=== PATIENT | female | born 1945 | race Caucasian/White ===

== ENCOUNTER 2020-03-07 09:49 | Emergency (ER) | payer MEDICARE, OTHER, SELFPAY ==
--- NOTE | ~2020-03-07 | CT_ITS ---
EXAMINATION: CT brain wo con DATE: 03/07/2020 11:10 INDICATION: Headache. TECHNIQUE: Computed tomography (CT) of the head was performed without intravenous contrast. The mA wa s adjusted according to patient size. Iterative reconstruction technique was employed. The dose-lengt h product was 605.33 mGy-cm. COMPARISON: None FINDINGS: There are scattered areas of low attenuation in the cerebral white matter, which is within normal limits for the patient's age. There is no intracranial hemorrhage, acute infarction, or abnorm al intracranial mass lesion. The ventricles are normal in size. The orbits are normal. There is near complete opacification of left maxillary sinus and the anterior left ethmoid sinuses with thickening and sclerosis of the sinus person, consistent with chronic sinusitis. The mastoid air cells are normal . IMPRESSION: 1. Normal aging brain. 2. Chronic sinusitis. Reviewed, dictated and finalized at location A.
--- NOTE | ~2020-03-07 | XR_ITS ---
XR chest 1V portable 03/07/2020 10:35 Indication: Hypertension Procedure: AP portable chest Comparison: 05/24/2014 Findings: Cardiomegaly. Large hiatal hernia. Mild pulmonary vascular congestion. No focal pneumonia, pleural effusion or pneumothorax. No acute osseous abnormality. Impression: 1: Cardiomegaly with pulmonary vascular congestion. 2: Large hiatal hernia. Reviewed, dictated and finalized at location B. Impression: 1: Cardiomegaly with pulmonary vascular congestion. 2: Large hiatal hernia.
[2020-03-07 10:12] VITALS: BP 170/96; PULSE 83; RESP 18; TEMP 36.2; O2SAT 100
[2020-03-07] MEDS: hydrALAZINE HCL 20 MG/ML VIAL 10 MG IV PUSH (10:26)
[2020-03-07 10:38] LABS: Basophils Absolute Auto 0.1 K/mm3 (0.0-0.1); Basophils Percent Auto 0.9 % (0.2-1.2); Eosinophils Absolute Auto 0.2 K/mm3 (0-0.3); Eosinophils Percent Auto 3.1 % (0-4.4); Hematocrit 42.1 % (37.0-47.0); Hemoglobin 13.9 g/dL (12.0-15.0); Immature Granulocyte Absolute 0.02 K/mm3 (0.00-0.031); Immature Granulocyte Percent A 0.3 % (0-0.5); Lymphocytes Absolute Auto 1.84 K/mm3 (0.9-3.2); Mean Corpuscular Hemoglobin 30.5 pg (26-34); Mean Corpuscular Volume 92.5 fl (80-100); Mean Platelet Volume 10.3 fl (7.4-10.4); Monocytes Absolute Auto 0.8 K/mm3 (0.1-0.6); Monocytes Percent Auto 10.4 % (2.6-8.5); Neutrophils Absolute Auto 4.7 K/mm3 (1.3-6.7); Neutrophils Percent Auto 61.3 % (45.5-73.1); Platelet Count Result 276 k/mm3 (150-375); Red Blood Count 4.55 M/mm3 (4.2-5.4); Red Cell Distribution Width 12.9 % (11.5-14.5); White Blood Count 7.7 K/mm3 (4.5-10.0)
[2020-03-07 10:51] LABS: Anion Gap 8 mmol/L (8-16); Blood Urea Nitrogen 14 mg/dL (7-17); Carbon Dioxide 31 mmol/L (22-30); Chloride 102 mmol/L (98-107); Estimated CRCL calculation 52 ml/min; Estimated Glomerular Filt Rate > 60; Glucose 109 mg/dL (65-105); Potassium 3.2 mmol/L (3.4-5.0); Sodium 141 mmol/L (137-145)
--- NOTE | 2020-03-07 10:52 | ED.HA ---
HPI - Headache General Chief Complaint: Headache Stated Complaint: High blood pressure, PETERSON Time Seen by Provider: 03/07/20 10:11 Source: patient Mode of arrival: ambulatory Limitations: no limitations History of Present Illness HPI Narrative: Patient is a 74-year-old female who presents with 3 weeks duration of headache began to check her blood pressure in the last couple of days noticed that it was elevated with systolics of 200 patient notes she has had intermittent headache behind the right eye for the last 3 weeks which is what led her to checking her blood pressure. Patient was attempting to go to primary care and was redirected to the emergency department patient has history of hypertension has been compliant with her medications which she has been on long-term. . Patient is otherwise healthy and in no distress upon arrival patient notes mild to moderate pain involving her current headache has not taken anything. Patient otherwise in no distress denies other complaints Related Data Home Medications Medication Instructions Recorded Confirmed lisinopril-hydrochlorothiazide tablet 03/07/20 pantoprazole PO 03/07/20 Allergies Allergy/AdvReac Type Severity Reaction Status Date / Time latex Allergy Unknown Swelling Verified 03/07/20 10:11 Penicillins Allergy Unknown Swelling Verified 03/07/20 10:11 Review of Systems Review of Systems: All systems reviewed & are unremarkable except as noted in HPI and below PMFSH Past Medical History Medical History (Updated 03/07/20 @ 11:56 by Pradip Bonilla PA-C) GERD (gastroesophageal reflux disease) Hypertension Family History Family History (Updated 04/05/16 @ 11:48 by DOCTOR UNKNOWN) Mother Family history of congestive heart failure Cerebrovascular accident Sibling Patient's sister is in good health Social History Social History Smoking status: Never smoker Alcohol intake: never Gender identity (if verbalized by the patient): Female Exam Narrative: Exam Narrative: GENERAL: Well-appearing, well-nourished, and in no acute distress. HEAD: Normocephalic, atraumatic. EYES: PERRLA and EOMI. ENT: Nares clear, no rhinorrhea or epistaxis. Mucous membranes moist. NECK: Supple. No adenopathy or masses. No carotid bruits or JVD CHEST: Clear to auscultation. No respiratory distress. No wheezes rales or rhonchi HEART: Regular rate and rhythm. No murmur heard. Normal peripheral pulses. EXTREMITIES: Normal range of motion. No edema. SKIN: Warm, dry, no rash. NEURO: No focal deficits. Alert and oriented x3. Cranial nerves II through XII grossly intact PSYCH: Normal mood and affect. Course Course Emergency Course: Patient in the room in no distress had blood work checked was given antihypertensive hemodynamically stable at this time resting comfortably in no distress felt appropriate for outpatient reevaluation aware of discussion recommendations of primary care Consultations Consultation #1: Discussed case with primary care who will call in some blood pressure to some for the patient and will see patient on Tuesday at 11:00 in the office Date: 03/07/20 Time: 11:53 Vital Signs Vital signs: Vital Signs Temperature 97.1 F L 03/07/20 10:12 Pulse Rate 83 03/07/20 10:12 Respiratory Rate 18 03/07/20 10:12 Blood Pressure 170/96 H 03/07/20 10:12 Pulse Oximetry 100 03/07/20 10:12 Temperature 97.1 F L 03/07/20 10:12 Pulse Rate 76 03/07/20 11:29 Respiratory Rate 18 03/07/20 11:29 Blood Pressure 158/90 H 03/07/20 11:29 Pulse Oximetry 96 03/07/20 11:29 MDM - Headache MDM Narrative Medical decision making narrative: Patient in the room at this time resting comfortably aware of case findings treatment plan and diagnosis agreeing to follow with primary care on Tuesday hemodynamically stable in no distress aware of case findings treatment plan diagnosis no electrolyte abnormalitie
[2020-03-07 11:17] LABS: NT Pro B Type Natriuretic Pept 209 PG/ML (5-100)
[2020-03-07 11:29] VITALS: BP 158/90; PULSE 76; RESP 18; O2SAT 96
--- NOTE | 2020-03-07 11:54 | ECG_ITS ---
Measurements Intervals [place] Rate: 74 P: -2 [place]: 215 QRS: 11 QRSD: 82 T: 3 QT: 396 QTc: 440 Interpretive Statements SINUS RHYTHM WITH FIRST DEGREE AV BLOCK VOLTAGE CRITERIA FOR LVH BORDERLINE T WAVE ABNORMALITY- INFERIOR LEADS ABNORMAL ECG Electronically Signed On 03-07-2020 12:16:27 CDT by River Sanderson D.O.
== END 2020-03-07 12:25 | disposition home or self-care (01) ==
PROVIDERS: Emergency Medicine Emergency Medical Services; Emergency Provider Emergency Medicine; PCP Family Medicine
DX: R51.9 Headache, unspecified (principal); I10 Essential (primary) hypertension; K21.9 Gastro-esophageal reflux disease without esophagitis; I51.7 Cardiomegaly; R09.89 Other specified symptoms and signs involving the circulatory and respiratory systems; K44.9 Diaphragmatic hernia without obstruction or gangrene; J32.9 Chronic sinusitis, unspecified; I44.0 Atrioventricular block, first degree; R94.31 Abnormal electrocardiogram [ECG] [EKG]
CPT/HCPCS: 36415; 70450; 71045; 80048; 83880; 85025; 93005; 96374; 99284; J0360

== ENCOUNTER 2020-07-10 08:50 | Outpatient (CLI) | payer MEDICARE, OTHER, SELFPAY ==
--- NOTE | ~2020-07-10 | MM_ITS ---
EXAMINATION: MM screening bri BI w pepper HISTORY: Screening mammogram TECHNIQUE: Craniocaudal and mediolateral oblique 3-D tomosynthesis images were obtained and synthetic 2-D images were generated. CAD analysis was submitted and interpreted. COMPARISON: 05/25/2019, 04/20/2018, 04/12/2017 bilateral digital screening mammogram examinations BREAST PARENCHYMAL COMPOSITION: There are scattered areas of fibroglandular density. FINDINGS: Status post right partial mastectomy for breast cancer and history of left reduction mammop lasty. Scattered benign calcifications are noted bilaterally. No interval suspicious mass or new architectur al distortion or retraction or interval skin thickening. No malignant calcification. There has been n o suspicious interval change. IMPRESSION: 1. Status post right partial mastectomy for breast cancer and left reduction mammoplasty. No mammogra phic evidence of malignancy. 2. Recommend routine screening mammography in one year. BI-RADS Category 2: Benign finding(s). Reviewed, dictated and finalized at location A. C ILLUSTRATOR IMPRESSION: 1. Status post right partial mastectomy for breast cancer and left reduction ma mmoplasty. No mammographic evidence of malignancy. 2. Recommend routine screening mammography in one year. BI-RADS Category 2: Benign finding(s).
== END 2020-07-10 08:51 | disposition home or self-care (01) ==
LOC: ANHIMG 08:56
PROVIDERS: PCP Family Medicine; Visit Provider Family Medicine
DX: Z12.31 Encounter for screening mammogram for malignant neoplasm of breast (principal)
CPT/HCPCS: 77063; 77067

== ENCOUNTER 2021-06-29 20:44 | Inpatient (IN) | payer MEDICARE, OTHER, SELFPAY ==
--- NOTE | ~2021-06-29 | XR_ITS ---
EXAMINATION: XR chest 1V portable DATE: 06/29/2021 21:20 INDICATION: Syncope TECHNIQUE: frontal view of the chest was obtained. COMPARISON: Chest radiograph dated 03/07/2020 FINDINGS: No focal airspace opacities, pulmonary edema, pleural effusion or pneumothorax. Heart size is normal with prominent left paracardial fat pad. Calcified AP window lymph node consistent with old granuloma tous disease. Large hiatal hernia. IMPRESSION: 1. No acute cardiopulmonary disease. 2. Large hiatal hernia. Reviewed, dictated and finalized at location A. LEDGE MANAGEMENT ADVISOR
[2021-06-29 20:47] VITALS: BP 175/112; PULSE 84; RESP 18; TEMP 35.9; O2SAT 97
--- NOTE | 2021-06-29 20:56 | ECG_ITS ---
Measurements Intervals [place] Rate: 81 P: 3 [place]: 221 QRS: -18 QRSD: 141 T: 100 QT: 414 QTc: 481 Interpretive Statements SINUS RHYTHM WITH FIRST DEGREE AV BLOCK LEFT BUNDLE BRANCH BLOCK ABNORMAL ECG Electronically Signed On 06-30-2021 6:20:27 TRANSITION MANAGER by River Sanderson D.O.
--- NOTE | 2021-06-29 21:11 | ED.GENADULT ---
HPI - General Adult General Chief complaint: Syncope Stated complaint: syncope Time Seen by Provider: 06/29/21 21:02 Source: RN notes reviewed History of Present Illness HPI narrative: Patient presents emergency department from home for syncopal episode. Patient states syncopal episode occurred approximately 30 minutes prior to arrival states that she was standing in the kitchen talking to her granddaughter when she had turned and states the next thing she knew she had awoken after passing out per family the patient was out for approximately 30 seconds patient states she had been on her feet for a while she denied having any chest pain or shortness of breath prior to the episode and states she feels fine at this time she denies any fevers or chills numbness or tingling in the extremities or any other symptoms states she has been under increased stress as her last week Related Data Home Medications Medication Instructions Recorded Confirmed lisinopril-hydrochlorothiazide tablet 03/07/20 pantoprazole PO 03/07/20 clonidine HCl 06/29/21 Allergies Allergy/AdvReac Type Severity Reaction Status Date / Time latex Allergy Unknown Swelling Verified 06/29/21 20:53 Penicillins Allergy Unknown Swelling Verified 06/29/21 20:53 Review of Systems Review of Systems: Gen.: Denies fevers or chills Eyes: Denies eye pain or visual change ENT: Denies congestion Respiratory: See HPI CV: Denies chest pain or palpitations GI: Denies abdominal pain nausea, emesis or diarrhea Musculoskeletal: Denies back pain or muscle pain Neuro: Denies numbness, tingling, weakness or focal weakness Skin: Denies rash Except as documented, all other systems reviewed and negative [facility] Past Medical History Medical History GERD (gastroesophageal reflux disease) Hypertension Family History Family History (Updated 04/05/16 @ 11:48 by DOCTOR UNKNOWN) Mother Family history of congestive heart failure Cerebrovascular accident Sibling Patient's sister is in good health Social History Social History Smoking status: Never smoker Alcohol intake: never Gender identity (if verbalized by the patient): Female Exam Narrative: APPEARANCE: No acute distress, nontoxic, resting in bed EYES: EOMI HEENT: Normocephalic, atraumatic, OMM RESPIRATORY: No respiratory distress Clear to auscultation bilaterally with no rhonchi wheezing or rales. CARDIOVASCULAR: Regular rate and rhythm without murmurs rubs or gallops. ABDOMINAL: Soft, nontender, nondistended, no rebound or guarding MUSCULOSKELETAl: Moves all extremities. No clubbing, cyanosis or edema. NEURO: Awake and alert. Following commands, speech normal, no focal deficits SKIN:: Warm, dry. No rashes lesions or abrasions PSYCHIATRIC: Normal affect/mood, Course Course Emergency Course: Reviewed old records left bundle branch block new from last EKG Discussed with Dr. Cagle presentation work-up agrees with consult agrees with plan for aspirin 325 at this time but no further anticoagulation Discussed Dr. Weber presentation work-up agrees with admission Discussed with patient and family results of workup and diagnosis. Discussed need for admission. Patient and family understand and agree to current treatment plan Vital Signs Vital signs: Vital Signs Temperature 96.7 F L 06/29/21 20:47 Pulse Rate 84 06/29/21 20:47 Respiratory Rate 18 06/29/21 20:47 Blood Pressure 175/112 H 06/29/21 20:47 Pulse Oximetry 97 06/29/21 20:47 Temperature 96.7 F L 06/29/21 20:47 Pulse Rate 74 06/29/21 21:54 Respiratory Rate 18 06/29/21 20:47 Blood Pressure 175/112 H 06/29/21 20:47 Pulse Oximetry 97 06/29/21 20:47 Medical Decision Making Vital Signs Vital Signs: Vital Signs Temperature 96.7 F L 06/29/21 20:47 Pulse Rate 84 06/29/21 20:47 Respirator
[2021-06-29 21:33] LABS: Basophils Absolute Auto 0.1 K/mm3 (0.0-0.1); Basophils Percent Auto 0.7 % (0.2-1.2); Eosinophils Absolute Auto 0.2 K/mm3 (0-0.3); Eosinophils Percent Auto 2.1 % (0-4.4); Hematocrit 42.5 % (37.0-47.0); Hemoglobin 14.7 g/dL (12.0-15.0); Immature Granulocyte Absolute 0.03 K/mm3 (0.00-0.031); Immature Granulocyte Percent A 0.3 % (0-0.5); Lymphocytes Percent Auto 14.1 % (18.3-44.2); Mean Corpuscular HGB Conc 34.6 g/dl (32-36); Mean Corpuscular Volume 92.4 fl (80-100); Mean Platelet Volume 9.1 fl (7.4-10.4); Monocytes Absolute Auto 1.2 K/mm3 (0.1-0.6); Monocytes Percent Auto 10.5 % (2.6-8.5); Neutrophils Absolute Auto 8.2 K/mm3 (1.3-6.7); Neutrophils Percent Auto 72.3 % (45.5-73.1); Platelet Count Result 295 k/mm3 (150-375); Red Cell Distribution Width 13.7 % (11.5-14.5); White Blood Count 11.4 K/mm3 (4.5-10.0)
[2021-06-29 21:41] LABS: INR 1.1; Prothrombin Time 13.4 Seconds (11.1-14.7)
[2021-06-29 21:42] LABS: Partial Thromboplastin Time 29.7 SECONDS (22.3-36.8)
[2021-06-29 21:54] VITALS: PULSE 74
[2021-06-29 22:01] LABS: Alanine Aminotransferase 24 U/L (4-35); Albumin Level 4.1 g/dL (3.5-5.1); Alkaline Phosphatase 68 U/L (38-126); Anion Gap 7 mmol/L (8-16); Aspartate Amino Transferase 38 U/L (14-36); Bilirubin,Total 0.8 mg/dL (0.2-1.3); Blood Urea Nitrogen 13 mg/dL (7-17); Calcium 9.4 mg/dL (8.4-10.2); Carbon Dioxide 33 mmol/L (22-30); Chloride 95 mmol/L (98-107); Estimated CRCL calculation 50 ml/min; Estimated Glomerular Filt Rate > 60; Glucose 122 mg/dL (65-110); Potassium 2.7 mmol/L (3.4-5.0); Sodium 135 mmol/L (137-145)
--- NOTE | 2021-06-29 22:09 | PC.NURSE ---
Called lab to add on MG
[2021-06-29] MEDS: POTASSIUM CHLORIDE 20 MEQ TABLET 40 MEQ PO (22:23)
[2021-06-29 22:24] LABS: Troponin I 0.063 ng/mL (0.000-0.034)
[2021-06-29 22:28] LABS: Magnesium 1.5 mg/dL (1.6-2.3)
[2021-06-29] MEDS: ASPIRIN 81 MG CHEWABLE TABLET 324 MG PO (23:10)
[2021-06-29] MEDS: MAGNESIUM SULF 2 GM/WATER 50ML 2 GM/50 ML BAG IVPB (23:15)
[2021-06-29 23:41] LABS: SARS-CoV-2 RNA PCR Positive
[2021-06-30] VITALS (13 sets, daily range): BP systolic 115–156; BP diastolic 64–85; PULSE 68–102; RESP 18–20; TEMP 36.5–36.9; O2SAT 94–99; BMI 27.6
--- NOTE | 2021-06-30 01:27 | ADMGEN ---
This patient, Davina Trivedi, was admitted to IMU Room 202-01. Patient/family oriented to hospital policies and general routines including ID bracelet, bed and alarms, visiting hours, pain management, procedures, bathroom and other care routines, personal items, smoking policy, room service/diet, and visiting hours. Information on how to activate the Rapid Response Team has been discussed. Patient/Family are encouraged to report perceived risks to care and to ask questions if they do not understand what they are told or what they should do.
[2021-06-30] MEDS: SODIUM CHLORIDE 0.9% IV 1,000 ML 80 ML IV CONT ×2 (01:47→21:00)
[2021-06-30] MEDS: KCL 40 MEQ/WATER 100 ML 100 ML 25 ML IVPB (01:48)
[2021-06-30 02:43] LABS: Troponin I 0.081 ng/mL (0.000-0.034)
[2021-06-30 05:12] LABS: Basophils Absolute Auto 0.1 K/mm3 (0.0-0.1); Basophils Percent Auto 0.8 % (0.2-1.2); Eosinophils Absolute Auto 0.3 K/mm3 (0-0.3); Hematocrit 40.4 % (37.0-47.0); Hemoglobin 13.3 g/dL (12.0-15.0); Immature Granulocyte Absolute 0.03 K/mm3 (0.00-0.031); Immature Granulocyte Percent A 0.3 % (0-0.5); Lymphocytes Absolute Auto 1.79 K/mm3 (0.9-3.2); Lymphocytes Percent Auto 19.8 % (18.3-44.2); Mean Corpuscular HGB Conc 32.9 g/dl (32-36); Mean Corpuscular Hemoglobin 31.6 pg (26-34); Mean Platelet Volume 9.4 fl (7.4-10.4); Monocytes Absolute Auto 1.1 K/mm3 (0.1-0.6); Monocytes Percent Auto 12.4 % (2.6-8.5); Neutrophils Absolute Auto 5.8 K/mm3 (1.3-6.7); Neutrophils Percent Auto 63.7 % (45.5-73.1); Platelet Count Result 287 k/mm3 (150-375); Red Blood Count 4.21 M/mm3 (4.2-5.4); Red Cell Distribution Width 13.8 % (11.5-14.5)
[2021-06-30 05:27] LABS: Anion Gap 6 mmol/L (8-16); Blood Urea Nitrogen 12 mg/dL (7-17); Calcium 8.7 mg/dL (8.4-10.2); Carbon Dioxide 31 mmol/L (22-30); Chloride 99 mmol/L (98-107); Estimated CRCL calculation 49 ml/min; Estimated Glomerular Filt Rate > 60; Glucose 103 mg/dL (65-110); Potassium 3.7 mmol/L (3.4-5.0); Sodium 136 mmol/L (137-145)
[2021-06-30 05:42] LABS: Troponin I 0.091 ng/mL (0.000-0.034)
--- NOTE | 2021-06-30 06:00 | ECHO_ITS ---
Patient Info Name: Davina Trivedi Age: 76 years : 1945 Gender: Female Ht: 60 in Wt: 150 lbs BSA: 1.72 m2 HR: 78 bpm BP: 147 / 79 mmHg Heart Rhythm: Sinus Rhythm Technical Quality: Fair Exam Date: 06/30/2021 8:25 AM Exam Location: [facility] Patient Status: Outpatient Admit Date: 06/29/2021 Staff Ordering Physician: Maxi Cruz DO Printing Equipment Mechanic Apprentice: Stacy Ledesma RDCS Attending Provider: India Weber DO Referring Physician: Nancy SALVADOR; Exam Type: CA echo doppler color flow Study Info Indications - L FUNCTION Complete two-dimensional, color flow and Doppler transthoracic echocardiogram is performed. Summary 1. Complete two-dimensional, color flow and Doppler transthoracic echocardiogram is performed. 2. Normal LV size, mild LVH, normal LV systolic function, ejection fraction 65-70%, diastolic dysfunction is present. Mild left atrial enlargement. Mitral valve leaflets are thickened, mild MR. Mild aortic valve sclerosis, mild aortic stenosis, valve area of 2 cm2, mild aortic regurgitation. Mild TR. RVSP 30 mmHg. Sinus rhythm with bundle branch block. Left Ventricle Left ventricular chamber dimension is normal. Left ventricular systolic function is normal, estimated at 65-70%. There is mildly increased left ventricular wall thickness. The left ventricular diastolic function is abnormal. E/e' 18.7 is elevated. Right Ventricle Right ventricular chamber dimension is normal. Right ventricular systolic function is normal. Left Atria Left atrial chamber dimension is mildly enlarged. Right Atria Right atrial chamber dimension is normal. Aortic Valve There is mild aortic valve sclerosis. There is mild aortic valve stenosis with a peak velocity of 143 cm/s, mean gradient of 4 mmHg, and aortic valve area of 1.9 cm2. There is trace aortic valve regurgitation. Pulmonic Valve The pulmonic valve is not well visualized. There is trace pulmonic regurgitation. Mitral Valve The mitral valve has thickened leaflets. There is mild mitral valve regurgitation. Tricuspid Valve The tricuspid valve leaflets are normal. There is mild tricuspid valve regurgitation. Pericardium/Pleural The pericardium appears normal. Inferior Vena Cava Normal inferior vena cava with >50% collapse upon inspiration consistent with normal right atrial pressure, 10 mmHg. Aorta There is mild aortic atherosclerosis. Left Ventricular Outflow Tract Name Value Normal LVOT 2D LVOT Diameter 2.0 cm LVOT Doppler LVOT Peak Gradient 3 mmHg LVOT Mean Gradient 2 mmHg LVOT VTI 17 cm LVOT VTI/AV VTI Ratio 0.6 LVOT Stroke Volume 54 ml LVOT CO 3.5 l/min LVOT CI 2.0 l/min/m2 Pulmonic Valve Name Value Normal
--- NOTE | 2021-06-30 08:43 | PM.CNCAR ---
Assessment and Plan Assessment and plan (1) Syncope: Code(s): R55 - Syncope and collapse Status: Acute Assessment and Plan: 76-year-old female with hypertension, GERD; history of CA breast status post mastectomy, no known prior cardiac history. Patient admitted to the hospital after a brief episode of loss of consciousness. No preceding symptoms of chest pain, shortness of breath. Patient undergoing motion stress due to recent passing of her . EKG showed sinus rhythm first-degree AV block, left bundle branch block (LBBB new compared to 03/07/2020 EKG). Troponins are minimally elevated. Patient does not have any ongoing cardiovascular symptoms. The etiology of syncope uncertain at this time. Possible etiologies include severe emotional stress, medication adverse effect, cardiac arrhythmia with underlying COVID-19 infection and severe hypokalemia; less likely acute coronary event. No significant arrhythmias on telemetry. -echocardiogram with Doppler to assess LV function, wall motion and rule out any major structural heart disease. -will determine need for further cardiac testing including ischemic evaluation based on echo results and clinical course. Patient has already eaten today. Will keep her NPO past midnight just in case she needs any ischemic evaluation. -aspirin, low-dose beta-gissell. -supplement electrolytes as needed -continue to monitor on telemetry (2) Elevated troponin: Code(s): R77.8 - Other specified abnormalities of plasma proteins Status: Acute Assessment and Plan: Plan described above. (3) Hypertension: Code(s): I10 - Essential (primary) hypertension Status: Acute Assessment and Plan: Patient was severely hypertensive on presentation. Her home medications include lisinopril/hydrochlorothiazide and clonidine. Clonidine should not be a first-line treatment for hypertension. -will initiate on losartan 50 mg p.o. daily and carvedilol 3.125 mg p.o. b.i.d.. Antihypertensive management as an outpatient. (4) COVID-19: Code(s): U07.1 - COVID-19 Status: Acute Assessment and Plan: Patient positive for COVID-19. She has not been requiring any supplemental oxygen and appears to be clinically stable at present. Management as per primary team. Patient reports that she was not vaccinated. History of Present Illness History of Present Illness Consult date/time: 06/30/21 08:43 DATE OF CONSULT: 08/28/2021 REASON FOR CONSULT: Syncope REQUESTING PHYSICIAN:Maxi Cruz DO CHIEF COMPLAINT: Loss of consciousness HPI: 76-year-old female with hypertension, GERD; history of CA breast status post mastectomy, no known prior cardiac history. Patient brought to [facility] on 06/29/2021 after an episode of loss of consciousness. Patient was apparently standing in the kitchen when she she passed out. Per witness, she passed out for about 30 seconds, and was helped by her family member and did not sustain any injuries. Patient denied any preceding symptoms of chest pain, shortness of breath, palpitations. Patient states that she has been undergoing emotional stress due to passing of her recently from COVID-19 infection. His is scheduled today. Patient's vitals at presentation showed elevated blood pressure at 175/112, pulse 84, afebrile, saturating 97%. Patient was found to be COVID positive and is currently in isolation. Patient states that she was not vaccinated for COVID-19 infection. EKG on my personal evaluation showed sinus rhythm, first-degree AV block, left bundle branch block. Left bundle branch block is new compared to the EKG from 03/07/2020. Troponins minimally elevated with current peak troponin level of 0.091. BNP 209. Patient was hypokalemic with potassium 2.7 at presentation which has been supplemented. Chest x-ray showed no acute cardiopulmonary disease, large hiatal hernia. Reason For Visit: Syncope, Hypokalemia
[2021-06-30] MEDS: ACETAMINOPHEN 325 MG TABLET 650 MG PO (12:24)
--- NOTE | 2021-06-30 16:14 | PM.IMHP ---
H&P: HPI History of Present Illness Date/Time: 06/30/21 16:14 Chief Complaint: Syncope Narrative: 76-year-old female with hypertension, GERD; history of CA breast status post mastectomy, no known prior cardiac history. Patient brought to [facility] on 06/29/2021 after an episode of loss of consciousness. Pt had episode of syncope and her daughter caught her in time. Pt passed out in her kitchen. Unfortunately pt recently lost her last week and his is today. Pt has been under alot of stress. EKG on admission is abnl and pt BPs have been high. Pt seen by cardiology today and is scheduled for heart cath. has from covid, unfortunately pt is positive for covid, but does not have any symptoms of cough sob or fever. Review of Systems Review of Systems: All systems reviewed & are unremarkable except as noted in HPI and below PMFSH Past Medical History Medical History GERD (gastroesophageal reflux disease) Hypertension Family History Family History Mother Family history of congestive heart failure Cerebrovascular accident Sibling Patient's sister is in good health Social History Social History Smoking status: Never smoker Second hand tobacco smoke exposure: No Alcohol intake: never Substance use: never Substance use type: does not use Gender identity (if verbalized by the patient): Female Spiritual care concerns: Yes Meds Home Medications and Allergies Home Medications Medication Instructions Recorded Confirmed Type lisinopril-hydrochlorothiazide 20 tablet PO QAM MDD 20 03/07/20 06/30/21 History [Zestoretic] pantoprazole [Protonix] 40 mg PO QAM MDD 40mg 03/07/20 06/30/21 History clonidine HCl 0.1 mg PO DAILY MDD 1 06/29/21 06/30/21 History Allergies Allergy/AdvReac Type Severity Reaction Status Date / Time latex Allergy Unknown Swelling Verified 06/29/21 20:53 Penicillins Allergy Unknown Swelling Verified 06/29/21 20:53 Vital Signs Vital Signs - 24 hr 06/29/21 20:47 06/29/21 21:54 06/30/21 01:05 Temperature 35.9 C L 36.5 C Pulse Rate 84 74 102 H Respiratory Rate 18 20 Blood Pressure 175/112 H 140/85 Pulse Oximetry 97 97 06/30/21 02:19 06/30/21 04:00 06/30/21 08:00 Temperature 36.6 C 36.9 C Pulse Rate 97 78 85 Respiratory Rate 20 18 Blood Pressure 147/79 H 156/81 H Pulse Oximetry 99 99 06/30/21 10:00 06/30/21 12:00 06/30/21 14:00 Temperature 36.8 C Pulse Rate 87 85 87 Respiratory Rate 18 Blood Pressure 115/64 Pulse Oximetry 96 06/30/21 16:00 Temperature 36.9 C Pulse Rate 77 Respiratory Rate 18 Blood Pressure 145/69 H Pulse Oximetry 98 Exam Const: Nutritional Appearance: other (weak ) Orientation/consciousness: lethargic HENMT: Head: normocephalic Eyes: General: appearance normal, both eyes and all related structures Pupils: Equal, round and reactive pupils present Neck: Neck: supple Chest: Chest palpation & inspection: normal inspection of the chest Resp: Effort & Inspection: normal respiratory effort Auscultation: clear to auscultation bilaterally Cardio: Jugular venous distension: no JVD Rhythm: regular rhythm Heart sounds: S1 normal heart sound present and S2 normal heart sound present GI: Inspection: normal to inspection GI Palp: No abdominal tenderness, Yes Soft to palpation and No Tenderness to palpation present (GI) Auscultation: normal bowel sounds Skin: General skin exam: normal color and dry skin Neuro: Cranial nerves: Yes CN's II-XII intact bilaterally and Yes Equal, round and reactive pupils present Cognition (Neuro): normal cognition Speech: normal speech Motor exam (neuro): 5/5 motor strength present throughout Extrem: General: normal to inspection Psych: Appearance: grossly normal Mental S
--- NOTE | 2021-06-30 16:48 | PC.NURSE ---
On 06/30/21, the student, [ Gretchen Basurto], provided care and completed [facility] documentation on this patient. I have reviewed the student's documentation and agree with the findings.
[2021-06-30] MEDS: POTASSIUM CHLORIDE 20 MEQ TABLET.ER PO (17:31)
[2021-06-30] MEDS: carvediloL 3.125 MG TABLET PO (20:20)
[2021-07-01] VITALS (13 sets, daily range): BP systolic 120–184; BP diastolic 65–90; PULSE 69–104; RESP 16–20; TEMP 36.2–36.8; O2SAT 96–99
[2021-07-01 09:05] LABS: Anion Gap 10 mmol/L (8-16); Blood Urea Nitrogen 10 mg/dL (7-17); Calcium 8.7 mg/dL (8.4-10.2); Carbon Dioxide 25 mmol/L (22-30); Chloride 102 mmol/L (98-107); Estimated CRCL calculation 56 ml/min; Estimated Glomerular Filt Rate > 60; Glucose 96 mg/dL (65-110); Magnesium 1.9 mg/dL (1.6-2.3); Potassium 3.8 mmol/L (3.4-5.0); Sodium 137 mmol/L (137-145)
[2021-07-01] MEDS: SODIUM CHLORIDE 0.9% IV 1,000 ML 80 ML IV CONT (09:23)
[2021-07-01] MEDS: LOSARTAN POTASSIUM 50 MG TABLET PO (09:24)
[2021-07-01] MEDS: POTASSIUM CHLORIDE 20 MEQ TABLET.ER PO ×2 (09:24→16:36)
[2021-07-01] MEDS: PANTOPRAZOLE 40 MG TABLET PO (09:25)
[2021-07-01] MEDS: MAGNESIUM OXIDE 400 MG TABLET PO (09:25)
[2021-07-01] MEDS: ASPIRIN 81 MG ENTERIC TABLET PO (09:25)
[2021-07-01] MEDS: carvediloL 3.125 MG TABLET PO ×2 (09:25→20:22)
--- NOTE | 2021-07-01 11:15 | P.CDI_ITS ---
CDI Query Clarification Request -Covid 19 has been documented and does not have any symptoms of cough, SOB, or fever documented and no current treatment for COVID. -06/29 Covid PCR positive -EDP documented, I discussed with the patient a positive Covid test patient states she had Covid 6 weeks ago and had spent 1 day in the hospital at that time Please clarify status of COVID 19: * Acute/active infection * Sequelae/residual affect of * History of Covid * Other * Unable to determine
--- NOTE | 2021-07-01 13:25 | PM.PNCARD ---
Progress Note: A&P Assessment and Plan (1) Syncope: Code(s): R55 - Syncope and collapse Status: Acute Assessment and Plan: 76-year-old female with hypertension, GERD; history of CA breast status post mastectomy, no known prior cardiac history. Patient admitted to the hospital after a brief episode of loss of consciousness. No preceding symptoms of chest pain, shortness of breath. Patient undergoing motion stress due to recent passing of her . EKG showed sinus rhythm first-degree AV block, left bundle branch block (LBBB new compared to 03/07/2020 EKG). Troponins are minimally elevated. Patient does not have any ongoing cardiovascular symptoms. The etiology of syncope uncertain at this time. Possible etiologies include severe emotional stress, medication adverse effect, cardiac arrhythmia with underlying COVID-19 infection and severe hypokalemia; less likely acute coronary event. No significant arrhythmias on telemetry. -echocardiogram normal LV systolic function EF 60-65%, paradoxical septal motion secondary to LBBB but no focal regional wall motion abnormality. Discussed at great length with the patient and her daughter at bedside initial concern prior to review of her echo for possible takotsubo or stress-induced cardiomyopathy given elevated troponin, syncope and LBBB on EKG in setting of very recent of her . However, there is no evidence for stress-induced cardiomyopathy with preserved EF no heart failure or anginal symptoms of any kind. While if remains unknown if she has any underlying CAD there is no evidence of acute coronary syndrome and/or plaque rupture at this time. Given the mild troponin elevation this would not result in or cause loss of consciousness unless associated with a ventricular arrhythmia. And neck case I would expect that would be a much larger troponin elevation and or LV dysfunction to corroborate high risk ischemic arrhythmia. At this time there is no evidence to support this and therefore proceeding with invasive angiography given her otherwise completely asymptomatic status resulting greater risk versus benefit at this time. We discussed reasonable approach to pursue noninvasive ischemic evaluation as an outpatient. Continue telemetry overnight Spent approximately 44 minutes in the care of this patient at bedside with extensive discussion with the patient and her daughter, examination, chart review, and medical decision making. (2) Elevated troponin: Code(s): R77.8 - Other specified abnormalities of plasma proteins Status: Acute Assessment and Plan: As above, precise etiology remains unclear but not secondary to angina or evidence of acute coronary syndrome and/or plaque rupture. Chronicity of LBBB remains unknown but new since February 2020. Mildly cannot exclude underlying CAD she has no symptoms suggestive of angina or CHF. Explained had if she had significant bradycardia, pauses and or marked tachyarrhythmia this may result and elevated troponin. Clinical picture is not consistent with pulmonary embolism. Findings on her echocardiogram are quite favorable. Explained I would like to repeat troponin to determine trend. Repeat troponin this afternoon was negative which is quite encouraging. Explained I would prefer to treat her on a more aggressive past as if she may have underlying CAD with aspirin 81 mg daily. Will check a lipid panel. If significant dyslipidemia is noted addition of statin would be advised. If no new issues overnight disposition tomorrow morning per hospitalist service. (3) PSVT (paroxysmal supraventricular tachycardia): Code(s): I47.1 - Supraventricular tachycardia Status: Acute Assessment and Plan: Transient, brief and asymptomatic episodes. Continue carvedilol which may reduce recurrence. Discussed outpatient patient monitor given syncope and tachyarrhythmia. (4) Hypertension: Code(s): I10 - Essential (lauren
--- NOTE | 2021-07-01 14:22 | PM.IMPN ---
Progress Note: A&P Assessment and Plan (1) COVID-19: Code(s): U07.1 - COVID-19 Status: Acute Assessment and Plan: Pt is asymptomatic presently, pt is not needing oxygen. Off isolation. (2) Hypertension: Code(s): I10 - Essential (primary) hypertension Status: Acute Assessment and Plan: Pt seen by cardiology started on BP medications (3) Syncope: Code(s): R55 - Syncope and collapse Status: Acute Assessment and Plan: ? to cardiac event ? to electrolyte abnormality ? covid ? secondary to stress Pt will need complete ischemic evaluation due to elevate trop, high bps and abnl ekg Already seen by cardiology (4) Acute hypokalemia: Code(s): E87.6 - Hypokalemia Status: Resolved Assessment and Plan: Potassium levels are corrected (5) Hypomagnesemia: Code(s): E83.42 - Hypomagnesemia Status: Acute Assessment and Plan: Magnesium levels are nl now were corrected (6) Elevated troponin: Code(s): R77.8 - Other specified abnormalities of plasma proteins Status: Acute Assessment and Plan: Pt will need ischemic work up continue tele monitoring.Pt is npo for heart cath. pt already seen by cardiology (7) Bereavement: Code(s): Z63.4 - Disappearance and of family member Status: Acute Assessment and Plan: Pt is very anxious and worried recently lost her . Subjective Date/time seen: 07/01/21 14:22 Interval history: 76-year-old female with hypertension, GERD; history of CA breast status post mastectomy, no known prior cardiac history. Patient brought to [facility] on 06/29/2021 after an episode of loss of consciousness. Pt admitted with syncope. Pt found to be covid positive but does not have any symptoms. Unfortunately pt recently lost her last week and his is yesterday. Pt is very nervous. Pt seen by cardiology today and is scheduled for heart cath. I explained this to the patient but she is very nervous about the procedure. Review of Systems Review of Systems: All systems reviewed & are unremarkable except as noted in HPI and below Exam Const: General: cooperative and anxious Orientation/consciousness: oriented to person HENMT: Head: normal to inspection Resp: Effort & Inspection: no respiratory distress Auscultation: no rhonchi and no wheezes Cardio: Rate: regular rate Rhythm: regular rhythm GI: Inspection: normal to inspection GI Palp: No abdominal tenderness, No Guarding due to palpation present (GI) and No Hepatomegaly present Auscultation: normal bowel sounds Neuro: General: oriented to person Objective Data Vital Signs Vital Signs: Vital Signs - 24 hr 06/30/21 16:00 06/30/21 18:00 06/30/21 20:00 Temperature 36.9 C 36.7 C Pulse Rate 77 80 75 Respiratory Rate 18 20 Blood Pressure 145/69 H 152/79 H Pulse Oximetry 98 94 06/30/21 20:20 06/30/21 20:24 06/30/21 22:00 Temperature Pulse Rate 86 84 Respiratory Rate Blood Pressure Pulse Oximetry 94 07/01/21 00:00 07/01/21 02:00 07/01/21 04:00 Temperature 36.6 C 36.2 C L Pulse Rate 92 74 73 Respiratory Rate 16 16 Blood Pressure 150/65 H 184/90 H Pulse Oximetry 97 97 07/01/21 06:00 07/01/21 08:00 07/01/21 09:25 Temperature 36.8 C Pulse Rate 84 75 79 Respiratory Rate 18 Blood Pressure 154/86 H Pulse Oximetry 96 07/01/21 10:00 07/01/21 12:00 07/01/21 14:00 Temperature 36.7 C Pulse Rate 70 69 71 Respiratory Rate 20 Blood Pressure 120/74 Pulse Oximetry 98 Intake/Output Intake/Output: Intake & Output 06/28/21 06/29/21 06/30/21 07/01/21 23:59 23:59 23:59 23:59 Intake Total 2550 1974 Output Total 600 Balance 1950 1974 Meds/Results Medications: Active Medications Generic Name Dose Route Start Last Admin Trade Name Freq PRN Reason Stop Dose Admin Acetaminophen 650 mg 06/30/21 11:54 06/30/21 12:24
[2021-07-01 16:39] LABS: Troponin I 0.013 ng/mL (0.000-0.034)
[2021-07-02] VITALS (7 sets, daily range): BP systolic 150–160; BP diastolic 83–96; PULSE 59–81; RESP 16–20; TEMP 36.2–36.6; O2SAT 97–98
[2021-07-02 05:58] LABS: LDL Cholesterol Direct 81 mg/dL
[2021-07-02 06:00] LABS: Anion Gap 4 mmol/L (8-16); Blood Urea Nitrogen 10 mg/dL (7-17); Calcium 8.4 mg/dL (8.4-10.2); Carbon Dioxide 26 mmol/L (22-30); Chloride 107 mmol/L (98-107); Cholesterol 138 mg/dL (0-200); Estimated CRCL calculation 56 ml/min; Estimated Glomerular Filt Rate > 60; Glucose 92 mg/dL (65-110); HDL Direct 30 mg/dL; Potassium 4.2 mmol/L (3.4-5.0); Sodium 137 mmol/L (137-145); Triglycerides 74 mg/dL (<150)
--- NOTE | 2021-07-02 08:58 | PM.PNCARD ---
Progress Note: A&P Assessment and Plan (1) Syncope: Code(s): R55 - Syncope and collapse <LATONIA Bolanos - Last Filed: 07/02/21 17:05> Status: Acute <LATONIA Bolanos - Last Filed: 07/02/21 17:05> Assessment and Plan: 76-year-old female with hypertension, GERD; history of CA breast status post mastectomy, no known prior cardiac history. Patient admitted to the hospital after a brief episode of loss of consciousness. No preceding symptoms of chest pain, shortness of breath. Patient undergoing stress due to recent passing of her . EKG showed sinus rhythm first-degree AV block, left bundle branch block (LBBB new compared to 03/07/2020 EKG). Troponins are minimally elevated. Patient does not have any ongoing cardiovascular symptoms. The etiology of syncope uncertain at this time. Possible etiologies include severe emotional stress, medication adverse effect, cardiac arrhythmia with underlying COVID-19 infection and severe hypokalemia; less likely acute coronary event. No significant arrhythmias on telemetry. -echocardiogram normal LV systolic function EF 60-65%, paradoxical septal motion secondary to LBBB but no focal regional wall motion abnormality. Discussed at great length with the patient and her daughter at bedside initial concern prior to review of her echo for possible takotsubo or stress-induced cardiomyopathy given elevated troponin, syncope and LBBB on EKG in setting of very recent of her . However, there is no evidence for stress-induced cardiomyopathy with preserved EF no heart failure or anginal symptoms of any kind. While if remains unknown if she has any underlying CAD there is no evidence of acute coronary syndrome and/or plaque rupture at this time. Given the mild troponin elevation this would not result in or cause loss of consciousness unless associated with a ventricular arrhythmia. -Discussed plan for outpatient lexiscan stress test. She expresses that she would like to wait a couple of weeks before having this test. Will arrange for lexiscan and follow up appointment in our office. <LATONIA Bolanos - Last Filed: 07/02/21 17:05> (2) Elevated troponin: Code(s): R77.8 - Other specified abnormalities of plasma proteins <LATONIA Bolanos - Last Filed: 07/02/21 17:05> Status: Acute <LATONIA Bolanos - Last Filed: 07/02/21 17:05> Assessment and Plan: As above, precise etiology remains unclear but not secondary to angina or evidence of acute coronary syndrome and/or plaque rupture. Continue ASA 81mg daily Lipid panel favorable, does not need statin at this time Plan for OP stress test to evaluate for any underlying CAD <LATONIA Bloanos - Last Filed: 07/02/21 17:05> (3) PSVT (paroxysmal supraventricular tachycardia): Code(s): I47.1 - Supraventricular tachycardia <LATONIA Bolanos - Last Filed: 07/02/21 17:05> Status: Acute <LATONIA Bolanos - Last Filed: 07/02/21 17:05> Assessment and Plan: Transient, brief and asymptomatic episodes. Continue carvedilol which may reduce recurrence. Will order outpatient tele monitor <LATONIA Bolanos - Last Filed: 07/02/21 17:05> (4) Hypertension: Code(s): I10 - Essential (primary) hypertension <LATONIA Bolanos - Last Filed: 07/02/21 17:05> Status: Acute <LATONIA Bolanos - Last Filed: 07/02/21 17:05> Assessment and Plan: Patient was hypertensive on presentation which has improved Her home medications include lisinopril/hydrochlorothiazide and clonidine. Continue losartan 50mg p.o daily Continue core 3.125mh p.o. b.i.d Antihypertensive management as outpatient <LATONIA Bolanos - Last Filed: 07/02/21 17:05> (5) Left bundle branch block: Code(s): I44.7 - Left bundle-branch block, unspecified <LATONIA Bolanos - Last Filed: 07/02/21 17:05
[2021-07-02] MEDS: ASPIRIN 81 MG ENTERIC TABLET PO (09:05)
[2021-07-02] MEDS: MAGNESIUM OXIDE 400 MG TABLET PO (09:05)
[2021-07-02] MEDS: POTASSIUM CHLORIDE 20 MEQ TABLET.ER PO (09:05)
[2021-07-02] MEDS: carvediloL 3.125 MG TABLET PO (09:05)
[2021-07-02] MEDS: PANTOPRAZOLE 40 MG TABLET PO (09:05)
[2021-07-02] MEDS: LOSARTAN POTASSIUM 50 MG TABLET PO (09:05)
--- NOTE | 2021-07-02 11:04 | PM.DS ---
DS: Admitting Diagnosis Discharge Date 07/02/21 Admitting Diagnosis Syncope DS: Discharge Diagnosis Discharge Diagnosis (1) Syncope: Code(s): R55 - Syncope and collapse Status: Acute (2) PSVT (paroxysmal supraventricular tachycardia): Code(s): I47.1 - Supraventricular tachycardia Status: Acute (3) Elevated troponin: Code(s): R77.8 - Other specified abnormalities of plasma proteins Status: Acute (4) Left bundle branch block: Code(s): I44.7 - Left bundle-branch block, unspecified Status: Acute (5) Hypertension: Code(s): I10 - Essential (primary) hypertension Status: Acute (6) Acute hypokalemia: Code(s): E87.6 - Hypokalemia Status: Resolved (7) Hypomagnesemia: Code(s): E83.42 - Hypomagnesemia Status: Acute (8) COVID-19: Code(s): U07.1 - COVID-19 Status: Acute (9) Bereavement: Code(s): Z63.4 - Disappearance and of family member Status: Acute DS: Summary Hospital Course Reason for hospitalization: 76yo female recently diagnosed with COVID early May and also who is grieving over the loss of her here for syncopal episode. Please see H&P for details Hospital Course: Patient brought to [facility] on 06/29/2021 after an episode of loss of consciousness. Blood pressure on admission was 175/112. White count was slightly elevated but normalized on repeat. Potassium and magnesium were low in these were replaced. Troponin climbed to 0.09 before normalizing. COVID nasal swab was positive. Patient did have COVID last month. Chest x-ray was clear. She remained on room air. EKG showed normal sinus rhythm with first-degree AV block and left bundle branch block. Echocardiogram showed normal LV systolic function with EF of 65-70%, mild LVH and diastolic dysfunction. She had mild valvular disease noted. Patient was seen by Cardiology. She remained on telemetry. She did have a episode of paroxysmal supraventricular tachycardia noted. She was started on Coreg for this. Medications were adjusted. Plan is for outpatient stress test. Patient will be discharged home with cardiac monitoring. Syncopal episode felt to be neurocardiogenic related to the recent loss of her . Patient has been up ambulating to the bathroom. She denies any chest pain, shortness of breath, dizziness or lightheadedness. She overall did well as a to be discharged home on 07/02/2019 tube. Discussed with Cardiology. Status at Discharge Cognitive/behavioral status at discharge: Stable Time Spent with Patient Time attestation: Total time spent providing and/or coordinating discharge services: 38 minutes Time spent: Greater than 30 minutes Exam Narrative: AF 97.1 160/88 71 16 97% ra Gen - NARD Chest - CTA bilaterally, nml RR CV - RRR S1/S2. Tele showing 2 episodes of Mobitz I Abd - Soft, NT/ND, Positive BS Ext - No pedal edema Neuro - Alert and oriented. Nonfocal exam. Psych - Nml mood and affect Skin - Warm and dry DS: Data Data Completed and Pending Labs on day of discharge: Labs from last 24 hours 07/02/21 07/01/21 04:31 16:04 Sodium 137 Potassium 4.2 Chloride 107 Carbon Dioxide 26 Anion Gap 4 L BUN 10 Creatinine 0.60 L Estim Creat Clear Calc 56 Estimated GFR > 60 Glucose 92 Calcium 8.4 Troponin I 0.013 Triglycerides 74 Cholesterol 138 LDL Cholesterol Direct 81 HDL Direct 30 Discharge Plan Discharge Attending physician on discharge: Ron Hernandez Consulting providers: Ollie Cagle Discharging Clinician: Ron Hernandez Anticipated Discharge Date/Time: 07/02/21 11:31 Patient Disposition: Home, Self-Care Activity: no straining and as tolerated Diet: heart healthy Discharge Instructions: Please avoid large gathering, wear face coverings in public and practice social distance. Take precautions to av
[2021-07-02] MEDS: ACETAMINOPHEN 325 MG TABLET 650 MG PO (12:21)
== END 2021-07-02 12:47 | disposition home or self-care (01) | DRG 312 ==
LOC: ANHED 22:47 → ANHIMU 23:07
PROVIDERS: Emergency Medicine; Family Medicine; Internal Medicine Cardiovascular Disease; Admitting Provider Internal Medicine; Emergency Provider Emergency Medicine; PCP Family Medicine; Visit Provider Internal Medicine
DX: R55 Syncope and collapse (principal); I47.1 Supraventricular tachycardia; K21.9 Gastro-esophageal reflux disease without esophagitis; I10 Essential (primary) hypertension; Z82.3 Family history of stroke; Z82.49 Family history of ischemic heart disease and other diseases of the circulatory system; R77.8 Other specified abnormalities of plasma proteins; E87.6 Hypokalemia; Z85.3 Personal history of malignant neoplasm of breast; Z63.4 Disappearance and death of family member; E83.42 Hypomagnesemia; I44.7 Left bundle-branch block, unspecified; Z88.8 Allergy status to other drugs, medicaments and biological substances; Z91.040 Latex allergy status; Z86.16 Personal history of COVID-19; Z20.822 Contact with and (suspected) exposure to COVID-19; Z79.899 Other long term (current) drug therapy
CPT/HCPCS: 36415; 71045; 80048; 80053; 80061; 83735; 84484; 85025; 85610; 85730; 93005; 93306; 96361; 96365; 96375; 99285; A9270; C9803; G0378; J3475; J3480; J7030; U0003; U0005

== ENCOUNTER 2021-09-24 00:40 | Day surgery (SDC) | payer MEDICARE, OTHER, SELFPAY ==
[2021-09-23 12:04] VITALS: BMI 28.4
[2021-09-24] VITALS (17 sets, daily range): BP systolic 102–194; BP diastolic 52–105; PULSE 52–76; RESP 12–24; TEMP 36.1–36.2; O2SAT 94–97; BMI 28.0
[2021-09-24 07:50] LABS: Basophils Absolute Auto 0.1 K/mm3 (0.0-0.1); Basophils Percent Auto 1.1 % (0.2-1.2); Eosinophils Absolute Auto 0.4 K/mm3 (0-0.3); Eosinophils Percent Auto 4.3 % (0-4.4); Hematocrit 43.2 % (37.0-47.0); Immature Granulocyte Absolute 0.02 K/mm3 (0.00-0.031); Immature Granulocyte Percent A 0.2 % (0-0.5); Lymphocytes Absolute Auto 1.61 K/mm3 (0.9-3.2); Lymphocytes Percent Auto 18.8 % (18.3-44.2); Mean Corpuscular HGB Conc 32.4 g/dl (32-36); Mean Corpuscular Hemoglobin 30.9 pg (26-34); Mean Corpuscular Volume 95.4 fl (80-100); Mean Platelet Volume 9.5 fl (7.4-10.4); Monocytes Percent Auto 11.2 % (2.6-8.5); Neutrophils Absolute Auto 5.5 K/mm3 (1.3-6.7); Neutrophils Percent Auto 64.4 % (45.5-73.1); Platelet Count Result 296 k/mm3 (150-375); Red Blood Count 4.53 M/mm3 (4.2-5.4); Red Cell Distribution Width 13.1 % (11.5-14.5); White Blood Count 8.6 K/mm3 (4.5-10.0)
[2021-09-24 07:54] LABS: Anion Gap 9 mmol/L (8-16); Blood Urea Nitrogen 15 mg/dL (7-17); Calcium 9.2 mg/dL (8.4-10.2); Carbon Dioxide 25 mmol/L (22-30); Chloride 104 mmol/L (98-107); Estimated CRCL calculation 49 ml/min; Estimated Glomerular Filt Rate > 60; Glucose 97 mg/dL (65-110); Potassium 4.3 mmol/L (3.4-5.0); Sodium 138 mmol/L (137-145)
[2021-09-24 07:56] LABS: INR 1.1; Prothrombin Time 13.5 Seconds (11.1-14.7)
--- NOTE | 2021-09-24 08:43 | WPDHPUPDATE1 ---
History and Physical Update Update Date/Time: 09/24/21 08:43 History and Physical has been reviewed, including an updated exam of the patient. There are NO changes in the patient's condition. Risks, benefits, and alternatives have been discussed and questions answered. Patient agrees to proceed with procedure.
--- NOTE | 2021-09-24 08:43 | WPDMODSED ---
Moderate Sedation Note-Pt Data Patient Data Diagnosis: Abnormal stress test, left bundle branch block, syncope Present Complaint: none HISTORY AND PHYSICAL ADDENDUM: BRIEF HISTORY OF PRESENT ILLNESS: Patient is a very pleasant 76-year-old female history of hypertension, breast cancer presented in July with unexplained syncope, mild troponin elevation, new left bundle-branch block and with asymptomatic COVID+ status who underwent outpatient ekg monitor tech without significant arrhythmia followed by noninvasive ischemic evaluation which revealed EF 62% medium size moderate intensity mixed defect involving the anterior anteroseptal person consistent with mateusz-infarct ischemia referred for left heart catheterization for delineation of her coronary anatomy. impression/plan of care: 1. Unexplained syncope in setting of elevated troponin 2. left bundle-branch block 3. 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 Recommendation to follow after coronary angiography. Discussed possibility percutaneous intervention and or stent implantation based on anatomy. patient verbalized understanding and agreed with plan of care. Procedure to be performed/Plan: Left heart catheterization with selective left and right coronary angiography with left ventriculography and hemodynamics and possible percutaneous intervention and stent implantation Allergies Allergy/AdvReac Type Severity Reaction Status Date / Time latex Allergy Unknown Swelling Verified 09/24/21 07:31 Penicillins Allergy Unknown Swelling Verified 09/24/21 07:31 Home Medications Medication Instructions Recorded Confirmed Type pantoprazole [Protonix] 40 mg PO QAM MDD 40mg 03/07/20 09/23/21 History aspirin 81 mg PO QAM #30 tablet 07/02/21 09/23/21 Rx carvedilol [Coreg] 3.125 mg PO Q12HR #60 tablet 07/02/21 09/23/21 Rx losartan [Cozaar] 50 mg PO DAILY #30 tablet 07/02/21 09/23/21 Rx magnesium oxide 400 mg PO DAILY #30 tablet 07/02/21 09/23/21 Rx Current Medications: Active Medications Sodium Chloride (Normal Saline Iv) 500 mls @ 100 mls/hr IV CONT .Q5H JOSE Sedation/Anesthesia: No previous sedation/anesthesia problems (including family history). ON LICENSE OF [facility] Past Medical History Medical History GERD (gastroesophageal reflux disease) Hypertension Family History Family History Mother Family history of congestive heart failure Cerebrovascular accident Sibling Patient's sister is in good health Social History Social History Smoking status: Never smoker Second hand tobacco smoke exposure: No Alcohol intake: never Substance use: never Substance use type: does not use Gender identity (if verbalized by the patient): Female Spiritual care concerns: No Mod Sed Physical Exam Physical Exam Pre Procedural Exam: Normal: Appearance, Eyes, Ears, Nose, Neck ( supple, normal range of motion), Throat ( posterior hypopharynx clear, nonerythematous), Airway ( normal anatomy, no obstruction), Lungs ( clear to auscultation bilaterally), Heart Size, Heart Rate, Heart Rhythm ( Regular rate rhythm), Neuro Exam, Abdomen, Liver, Extremities and Skin Hours since solid foods: 12 Hours since liquid intake: 12 Mallampati Classification: class III Internal Medicine - PN: Obj Da Vital Signs Vital Signs: Vital Signs - 24 hr 09/24/21 07:40 Temperature 36.2 C L Pulse Rate 76 Respiratory Rate 13 Blood Pressure 194/105 H Pulse Oximetry 97 Meds/Results Medications: Active Medications Generic Name Dose Route Start Last Admin Trade Name Freq PRN Reason Stop Dose Admin Sodium Chloride 500 mls @ 100 mls/hr 09/24/21 07:00 Normal Saline Iv IV CONT .Q5H JOSE Labs CBC & Chem 7: 09/24/21 07:30 09/24/21 07:30
--- NOTE | 2021-09-24 09:43 | PM.OP ---
Procedure Note - Brief Procedure Note - Brief Date of procedure: 09/24/21 Pre-op diagnosis: Abnormal stress test, left bundle branch block, unexplained syncope Post-op diagnosis: Same Procedure performed: left heart catheterization with selective left and right coronary angiography with left ventriculography and hemodynamics Description of procedure: BRIEF HISTORY OF PRESENT ILLNESS: Patient is a pleasant 76-year-old female with past medical history significant for hypertension, breast cancer who was admitted in July 2019 with unexplained syncope associated with COVID positive asymptomatic infection, mild troponin elevation, new left bundle-branch block but with preserved LV function on echocardiogram. Outpatient bus monitor do not reveal significant arrhythmia. She underwent noninvasive ischemic evaluation which revealed preserved LV systolic function but with moderate mixed infarct with mateusz-infarct ischemia the anterior anteroseptal person for which she was referred for left heart catheterization for further delineation of her coronary anatomy. She had been feeling well of late without exertional chest pain or shortness of breath reported or recurrent near-syncope or syncope. PROCEDURES PERFORMED: 1. Left heart catheterization 2. Selective left and right coronary angiography 3. Left ventriculography and hemodynamics 4. Moderate/conscious sedation administration CATHETERS UTILIZED: Left coronary system- 5 Beninese JL4 catheter Right coronary system- 5 Beninese JR4 catheter Left ventriculography and hemodynamics- 5 Beninese angled pigtail catheter PROCEDURE IN DETAIL: After verbal and written informed consent was obtained the patient, risks, benefits, and alternatives explained in detail the patient agreed to proceed with the plan of care as outlined above. The patient was subsequently brought to the cardiac catheterization lab, placed on the cardiac catheterization table, and prepped and draped in the usual sterile fashion. Utilizing approximately 18cc of 1% subcutaneous Lidocaine, the right groin was then locally anesthetized. Utilizing the modified Seldinger technique, a 5 Beninese arterial vascular access sheath was inserted in the right common femoral artery easily and without complications. Through this access, coronary angiography was subsequently obtained in multiple standard re-projections. Following this, a 5 Beninese angled pigtail catheter was advanced retrograde across aortic valve into the cavity of the left ventricle. Left ventriculography was performed and pullback across aortic valve was subsequently recorded. The vascular access sheath and angiographic catheters were flushed before and after catheter exchanges. At the conclusion of the diagnostic portion of the procedure, all angiographic guidewires and catheters were removed and the 5 Beninese arterial vascular access sheath was then pulled and satisfactory hemostasis was achieved using manual compression. There no complications noted at the conclusion of the diagnostic portion of the study. Of note, due to uncontrolled hypertension patient received a total of 10 mg intravenous hydralazine in divided doses. There is a very small localized hematoma noted at the conclusion of the procedure controlled with manual compression. This was Discussed with the patient. MODERATE SEDATION/ANESTHESIA ADMINISTRATION: Patient reports no prior problems with sedation/anesthesia. Please see pre-sedation noted for physical examination documentation. Sedation start time was 856 and end time was 927 for a total intra-service/procedure face-face time of 35 minutes. A total of 1 mg intravenous Versed and a total of 50 mcg intravenous Fentanyl was administered for moderate sedation. Moderate sedation was administered by qualified/certified observer Eryn Whitman RN under my supervision with intra-procedure [id number] observation and management throughout the entirety of the procedure. There
[2021-09-24] MEDS: SODIUM CHLORIDE 0.9% IV 1,000 ML 125 ML IV CONT (10:25)
--- NOTE | 2021-09-24 13:11 | SUR.PHASEII ---
D: Patient arrived from [facility] Awake and alert. Her initial b/p on arrival was 119/53 and her heart rate was 48. It was reported by the lab staff that the patient had received 5mg of hydralazine IVP before leaving the lab. After cycling her b/p again it was noted that her b/p was 75/39 and upon repeating the pressure it was 78/42. There was a small hematoma to the right groin area under (distal) to the sheath that was left in place. A: Dr. Mcrae notified of patient condition and came to the bedside to evaluate. Pt given a 250ml 0.9 NS bolus and maintained a rate of 250ml until systolic b/p was above 90 systolic. Hematoma to right groin expressed and pressure held at the site of the hematoma for 25 minutes at which time homeostasis was achieved. R: B/P did stabilize and groin hematoma resolved after 25mins of manual pressure after which time the sheath was removed and another 30mins of manual pressure was held..
== END 2021-09-24 16:05 | disposition home or self-care (01) ==
PROVIDERS: PCP Family Medicine; Visit Provider Internal Medicine Cardiovascular Disease
PROC: 4A023N7 Measurement of Cardiac Sampling and Pressure, Left Heart, Percutaneous Approach (ICD-10-PCS; CPT 93452; principal; 2021-09-24 08:30)
DX: I25.10 Atherosclerotic heart disease of native coronary artery without angina pectoris (principal); R55 Syncope and collapse; I44.7 Left bundle-branch block, unspecified; I10 Essential (primary) hypertension; Z85.3 Personal history of malignant neoplasm of breast; R77.8 Other specified abnormalities of plasma proteins; Z86.16 Personal history of COVID-19; Z79.82 Long term (current) use of aspirin; K21.9 Gastro-esophageal reflux disease without esophagitis
CPT/HCPCS: 36415; 80048; 85025; 85610; 93458; C1887; C1894; J0360; J1644; J2250; J3010; J7030; J7040

== ENCOUNTER 2023-01-12 13:59 | Outpatient (CLI) | payer MEDICARE, OTHER, SELFPAY ==
--- NOTE | 2023-01-12 15:16 | ECG_ITS ---
Measurements Intervals [place] Rate: 59 P: 1 AL: 219 QRS: -13 QRSD: 146 T: 104 QT: 446 QTc: 444 Interpretive Statements SINUS BRADYCARDIA WITH FIRST DEGREE AV BLOCK LEFT BUNDLE BRANCH BLOCK [120+ ms QRS DURATION, 80+ ms Q/S IN V1/V2, 85+ ms R IN I/aVL/V5/V6] ABNORMAL ECG COMPARED TO ECG 06/29/2021 21:33:29 SINUS BRADYCARDIA NOW PRESENT Electronically Signed On 01-13-2023 9:43:25 CDT by Darrion Nieves M.D.
[2023-01-12 15:45] LABS: Basophils Absolute Auto 0.1 K/mm3 (0.0-0.1); Eosinophils Absolute Auto 0.2 K/mm3 (0-0.3); Hematocrit 40.6 % (37.0-47.0); Hemoglobin 13.6 g/dL (12.0-15.0); Immature Granulocyte Absolute 0.07 K/mm3 (0.00-0.031); Immature Granulocyte Percent A 0.7 % (0-0.5); Lymphocytes Absolute Auto 2.05 K/mm3 (0.9-3.2); Lymphocytes Percent Auto 19.1 % (18.3-44.2); Mean Corpuscular HGB Conc 33.5 g/dl (32-36); Mean Corpuscular Hemoglobin 31.9 pg (26-34); Mean Corpuscular Volume 95.3 fl (80-100); Mean Platelet Volume 9.2 fl (7.4-10.4); Monocytes Absolute Auto 1.3 K/mm3 (0.1-0.6); Monocytes Percent Auto 12.2 % (2.6-8.5); Platelet Count Result 328 k/mm3 (150-375); Red Blood Count 4.26 M/mm3 (4.2-5.4); Red Cell Distribution Width 13.4 % (11.5-14.5); White Blood Count 10.7 K/mm3 (4.5-10.0)
[2023-01-12 15:52] LABS: INR 1.1; Prothrombin Time 14.3 Seconds (11.1-14.7)
[2023-01-12 15:53] LABS: Partial Thromboplastin Time 32.4 SECONDS (22.3-36.8)
[2023-01-12 15:54] LABS: Alanine Aminotransferase 18 U/L (6-35); Albumin Level 3.7 g/dL (3.5-5.1); Alkaline Phosphatase 66 U/L (38-126); Anion Gap 8 mmol/L (8-16); Aspartate Amino Transferase 26 U/L (14-36); Bilirubin,Total 0.8 mg/dL (0.2-1.3); Blood Urea Nitrogen 10 mg/dL (7-17); Calcium 8.8 mg/dL (8.4-10.2); Carbon Dioxide 31 mmol/L (22-30); Chloride 99 mmol/L (98-107); Estimated Glomerular Filt Rate > 60; Glucose 83 mg/dL (65-110); Potassium 3.8 mmol/L (3.4-5.0); Sodium 138 mmol/L (137-145)
== END 2023-01-12 14:00 | disposition home or self-care (01) ==
LOC: ANHSURGERY 14:01
PROVIDERS: PCP Family Medicine; Visit Provider Urology
DX: Z01.812 Encounter for preprocedural laboratory examination (principal); Z01.810 Encounter for preprocedural cardiovascular examination; N81.4 Uterovaginal prolapse, unspecified; I10 Essential (primary) hypertension; R00.1 Bradycardia, unspecified; I44.0 Atrioventricular block, first degree; I44.7 Left bundle-branch block, unspecified
CPT/HCPCS: 36415; 80053; 85025; 85610; 85730; 86850; 86900; 86901; 93005

== ENCOUNTER 2023-01-24 00:24 | Day surgery (SDC) | payer MEDICARE, OTHER, SELFPAY ==
[2023-01-12 14:25] VITALS: BMI 30.8
--- NOTE | 2023-01-12 14:53 | PC.NURSE ---
Report to the Outpatient Waiting Room, entrance under the green pavilion located off [facility], at time __6:00AM on date __01/24/23 . Planned Procedure Time: __7:30AM . Time changes happen often and if your time is changed the preop area will call you the afternoon before. - You and your visitor will be asked to self-screen and do not enter if you have any COVID symptoms. - A mask is optional within the hospital at this time. Patients may have clear liquids (water, carbonated beverages, clear teas, apple juice) until 3 hours prior to surgery with a maximum of 20 ounces. - No food from midnight until time of surgery Take the following medications with a SIP of water the morning of surgery: CARVEDILOL DO NOT STOP ANY OF YOUR OTHER PRESCRIPTION MEDICATIONS PRIOR TO SURGERY ?EXCEPT THE FOLLOWING Medications to discontinue per physician ___HOLD ALL VITAMINS/ SUPPLEMENTS 7 DAYS PRE-OP PER DR FLOOD. Date to take last dose___01/17/23 Please no make-up, nail romansh, hairspray, perfume, deodorant, or body powder the day of surgery. No jewelry (including any body piercings) or valuables the day of surgery, leave them at home. Please take a shower or bath the night before, or the morning of, surgery with an antibacterial soap. Wear comfortable, loose fitting clothing. Children are encouraged to wear pajamas. - Jewelry must be removed prior to entering the operating room. Rings and piercings that are not removed may be cut off. - The hospital will not accept responsibility for valuables. - Please leave all valuables, including medications, at home the day of surgery. If you are going home after surgery, a licensed ambulance driver paramedic must drive you home. - NO public transportation without another adult if you receive anesthesia. - We recommend that an adult stay with you for 24 hours following discharge. - We also recommend that you do not drive, make important decision, drink alcoholic beverages, or take any drugs that were not prescribed by your health care provider for at least 24 hours after your discharge time. Follow any additional instructions given to you from your surgeon. If you or anyone in your household have experienced Covid symptoms in the past week, please notify your surgeon or the nurse liaison at the phone number below for possible testing. Telephone instructions given to __PATIENT and asked if any additional questions and then verbalized understanding. Patient advised to call surgeon office or pre surgery nurse liaison [phone] if any additional questions.
--- NOTE | 2023-01-22 07:22 | PM.IMHP ---
H&P: HPI History of Present Illness Date/Time: 01/22/23 07:22 Chief Complaint: Uterine prolapse Narrative: 69-year-old female admitted for repair of uterine prolapse. My portion will consist of robotic supracervical hysterectomy bilateral salpingo-oophorectomy vertebral and will proceed with sacral colpopexy and other procedures necessary. Risks and benefits were reviewed with the patient including but not exclusive of , aspiration, bleeding transfusion perforation injury to bowel, bladder, ureters or other internal organs with need for laparotomy. She had all questions answered and asked to proceed PMFSH Past Medical History Medical History GERD (gastroesophageal reflux disease) Hypertension Family History Family History Mother Family history of congestive heart failure Cerebrovascular accident Sibling Patient's sister is in good health Social History Social History Smoking status: Never smoker Second hand tobacco smoke exposure: No Alcohol intake: current Substance use: never Substance use type: does not use Living arrangements: alone Gender identity (if verbalized by the patient): Female Spiritual care concerns: No Meds Home Medications and Allergies Home Medications Medication Instructions Recorded Confirmed Type pantoprazole 40 mg tablet,delayed 40 mg PO QAM GERD 03/07/20 01/12/23 History release (Protonix) carvedilol 3.125 mg tablet (Coreg) 3.125 mg PO Q12HR #60 tabs 07/02/21 01/12/23 Rx magnesium oxide 400 mg (241.3 mg 400 mg PO DAILY #30 tabs 07/02/21 01/12/23 Rx magnesium) tablet Apricot Seeds 1 cap PO BID 01/12/23 01/12/23 History Biosalts 1 cap PO BID 01/12/23 01/12/23 History losartan 50 mg tablet (Cozaar) 50 mg PO QAM 01/12/23 01/12/23 History Allergies Allergy/AdvReac Type Severity Reaction Status Date / Time latex Allergy Unknown Swelling Verified 01/12/23 14:19 Penicillins Allergy Unknown Swelling Verified 01/12/23 14:19 Exam Const: General: cooperative, healthy appearing, comfortable and average body habitus Orientation/consciousness: oriented to person, oriented to place and oriented to time HENMT: Head: normal to inspection Resp: Effort & Inspection: normal respiratory effort Cardio: Rate: regular rate Rhythm: regular rhythm Heart sounds: S1 normal heart sound present and S2 normal heart sound present GI: Inspection: normal to inspection : External Female Exam: normal external appearance ( uterine prolapse noted) Speculum Exam - Cervix: normal appearance of the cervix Bimanual exam- vagina & uterus: uterine size normal Bimanual Exam- Adnexa, other: normal adnexae Assessment and Plan Assessment and plan (1) Uterine prolapse: Code(s): N81.4 - Uterovaginal prolapse, unspecified Status: Acute Plan supracervical hysterectomy and bilateral salpingo-oophorectomy
--- NOTE | 2023-01-23 11:57 | PM.IMHP ---
H&P: HPI History of Present Illness Date/Time: 01/23/23 11:57 Chief Complaint: Prolapse Narrative: this is a 77-year-old with significant uterine prolapse. She has occult stress incontinence documented on urodynamics. She has tried and failed a pessary. It will no longer stay in place. She would like a surgical approach. She presents for colpopexy. She declines obliterative procedure. Review of Systems Review of Systems: All systems reviewed & are unremarkable except as noted in HPI and below PMFSH Past Medical History Medical History GERD (gastroesophageal reflux disease) Hypertension Family History Family History Mother Family history of congestive heart failure Cerebrovascular accident Sibling Patient's sister is in good health Social History Social History Smoking status: Never smoker Second hand tobacco smoke exposure: No Alcohol intake: current Substance use: never Substance use type: does not use Living arrangements: alone Gender identity (if verbalized by the patient): Female Spiritual care concerns: No Meds Home Medications and Allergies Home Medications Medication Instructions Recorded Confirmed Type pantoprazole 40 mg tablet,delayed 40 mg PO QAM GERD 03/07/20 01/12/23 History release (Protonix) carvedilol 3.125 mg tablet (Coreg) 3.125 mg PO Q12HR #60 tabs 07/02/21 01/12/23 Rx magnesium oxide 400 mg (241.3 mg 400 mg PO DAILY #30 tabs 07/02/21 01/12/23 Rx magnesium) tablet Apricot Seeds 1 cap PO BID 01/12/23 01/12/23 History Biosalts 1 cap PO BID 01/12/23 01/12/23 History losartan 50 mg tablet (Cozaar) 50 mg PO QAM 01/12/23 01/12/23 History Allergies Allergy/AdvReac Type Severity Reaction Status Date / Time latex Allergy Unknown Swelling Verified 01/12/23 14:19 Penicillins Allergy Unknown Swelling Verified 01/12/23 14:19 Exam Narrative: No acute distress alert oriented x3 urethral hypermobility is documented stage IV uterine prolapse and +6 beyond the introitus Assessment and Plan Assessment and plan (1) Uterine prolapse: Code(s): N81.4 - Uterovaginal prolapse, unspecified Status: Acute (2) BART (stress urinary incontinence, female): Code(s): N39.3 - Stress incontinence (female) (male) Status: Acute Plan robotic colpopexy with concomitant sling procedure. She understands risks of bleeding, infection, damage surrounding organs, damage to the urinary tract, bowel injury, bowel obstruction, inability to fully reduce the prolapse due to its large size, postoperative voiding dysfunction including incontinence and retention, hip and leg pain, dyspareunia, mesh related complications including exposure and extrusion. She agrees to proceed
[2023-01-24] VITALS (12 sets, daily range): BP systolic 141–163; BP diastolic 62–94; PULSE 61–85; RESP 10–20; TEMP 35.9–36.8; O2SAT 92–100
--- NOTE | 2023-01-24 06:40 | WPDHPUPDATE1 ---
History and Physical Update Update Date/Time: 01/24/23 06:40 History and Physical has been reviewed, including an updated exam of the patient. There are NO changes in the patient's condition. Risks, benefits, and alternatives have been discussed and questions answered. Patient agrees to proceed with procedure.
[2023-01-24] MEDS: LACTATED RINGERS 1,000 ML 30 ML IV CONT ×2 (06:45→10:51)
[2023-01-24] MEDS: ACETAMINOPHEN 500 MG TABLET 1000 MG PO (06:47)
[2023-01-24] MEDS: KETOROLAC 15 MG/ML VIAL (*BKC) IV PUSH ×2 (06:47→14:29)
--- NOTE | 2023-01-24 07:11 | WPDANESEPPF ---
Anes - Initial Pre Proc Eval Procedure: Operation Date: 01/24/23 07:30 Proposed Procedures p Robotic Sacrocolpopexy - Joselo Gautam MD s Robotic Assisted Total Supracervical Hysterectomy Bilateral Salpingectomy - Silvio Henderson MD Date/Time: 01/24/23 07:11 Surgeon: Joselo Gautam MD Pre Op Diagnosis: uterine prolapse Patient Data Age: 77 Gender: F Height: 1.47 m Weight: 64.2 kg Last Vital Signs Temp 36.7 C 01/24/23 06:21 Pulse 72 01/24/23 06:21 Resp 18 01/24/23 06:21 BP 154/94 H 01/24/23 06:21 Pulse Ox 99 01/24/23 06:21 O2 Del Method Room Air 01/24/23 06:21 Allergies Allergy/AdvReac Type Severity Reaction Status Date / Time latex Allergy Unknown Swelling Verified 01/24/23 07:00 Penicillins Allergy Unknown Swelling Verified 01/24/23 07:00 Home Medications Medication Instructions Recorded Confirmed Type pantoprazole 40 mg tablet,delayed 40 mg PO QAM GERD 03/07/20 01/24/23 History release (Protonix) carvedilol 3.125 mg tablet (Coreg) 3.125 mg PO Q12HR #60 tabs 07/02/21 01/24/23 Rx magnesium oxide 400 mg (241.3 mg 400 mg PO DAILY #30 tabs 07/02/21 01/24/23 Rx magnesium) tablet Apricot Seeds 1 cap PO BID 01/12/23 01/24/23 History Biosalts 1 cap PO BID 01/12/23 01/24/23 History losartan 50 mg tablet (Cozaar) 50 mg PO QAM 01/12/23 01/24/23 History Patient hx anesthesia problems: none Family hx anesthesia problems: none Results Review: All pre-operative results and documents have been reviewed as part of the pre-operative evaluation. [facility] Past Medical History Medical History GERD (gastroesophageal reflux disease) Hypertension Family History Family History Mother Family history of congestive heart failure Cerebrovascular accident Sibling Patient's sister is in good health Social History Social History Smoking status: Never smoker Second hand tobacco smoke exposure: No Alcohol intake: current Substance use: never Substance use type: does not use Living arrangements: alone Gender identity (if verbalized by the patient): Female Spiritual care concerns: No Anes - Eval Final PreProcedure Day of Procedure 01/24/23 07:11 Patient weight: overweight Heart: regular rate and rhythm Lungs: clear to auscultation Airway: Mallampati scale class II Neurological: alert and oriented Last oral intake: >/= 8 hours ASA classification: III Emergent: no Anesthetic plan: proceed Anesthesia type and monitoring: general ETT and standard monitoring Results Review: All pre-operative results and documents have been reviewed as part of the pre-operative evaluation. Informed Consent: The patient's anesthetic plan and its attendant risks and benefits were discussed with the patient/family/POA. Questions were solicited and answers provided to the satisfaction of the patient/family/POA.
--- NOTE | 2023-01-24 07:16 | WPDHPUPDATE1 ---
History and Physical Update Update Date/Time: 01/24/23 07:16 History and Physical has been reviewed, including an updated exam of the patient. There are NO changes in the patient's condition. Risks, benefits, and alternatives have been discussed and questions answered. Patient agrees to proceed with procedure.
[2023-01-24] MEDS: ceFAZolin 2 GM/D5W 50 ML 2 GM/50 ML BAG IVPB (07:30)
--- NOTE | 2023-01-24 08:20 | W.PM.PROC2 ---
Procedure Note - Detailed Date of Procedure 01/24/23 Pre-op Diagnosis uterine prolapse Post-op Diagnosis Same Procedure Performed Supracervical robotic hysterectomy and bilateral salpingo-oophorectomy Surgeon Silvio Henderson MD Anesthesia General Indications This is a 77-year-old with uterine prolapse Findings Uterine prolapse Description of Procedure Patient was prepped draped in normal sterile fashion placed in dorsal lithotomy position. Under excellent general trach anesthesia weighted speculum placed posterior cervix grasped single-tooth tenaculum and the Abreu's cannula inserted attached to the single-tooth to be used later for any ablation. The 16 [place] catheter was placed in the bladder draining clear urine. Dr. Gautam proceeded to do at placement of the trocars and the docking please see his operative report for full details. The console was then attended. The left round ligament was grasped, burned, cut. Anteriorly bladder flap was formed by sharply dissecting the peritoneum and reflecting this caudally away from the cervix uterus the opposite round ligament. The left infundibulopelvic structure was skeletonized clamping burning cutting and bringing this to the previously cut ligament. The right infundibulopelvic structure was skeletonized clamping burning cutting this to the previously cut ligament. The cardinal broad ligaments on the left were then serially skeletonized clamping burning cutting and bringing these down to the uterine vessels which were small clamped individually cut. The cardinal broad ligaments on the right were serially skeletonized clamping burning cutting and then clamping the uterine vessels. Supracervical incision made this was placed in Endo-Catch. Was a fair amount of colon that was stuck to the left lateral sidewall this was sharply dissected without difficulty to help Dr. Gautam proceed with his portion of the procedure blood loss to this point was 5cc. All sponge, needle, instrument counts were correct. There were no immediate complications please see his operative report for the finish Estimated Blood Loss 5 Drains No Packing No Pathology Yes Complications No immediate complications Condition Stable Disposition PACU
--- NOTE | 2023-01-24 11:13 | W.PM.PROC2 ---
Procedure Note - Detailed Date of Procedure 01/24/23 Pre-op Diagnosis uterine prolapse Occult stress incontinence Post-op Diagnosis Same Procedure Performed Robotic assisted laparoscopic sacral colpopexy Urethral sling Cystoscopy Surgeon Joselo Gautam MD Anesthesia General Indications This is a woman with uterine prolapse as well as stress incontinence. The stress incontinence is occult and noted on urodynamics. She desires surgical correction. She is here for the above. She understands risks of bleeding, infection, diskitis, damage to surrounding organs, bowel injury, bowel obstruction, mesh related complications including exposure and extrusion, postoperative voiding dysfunction including incontinence and retention, need for ancillary procedures, dyspareunia, recurrence of prolapse, inability to reduce the prolapse and other perioperative intraoperative postoperative complications. She agrees to proceed. Findings See below Description of Procedure She was correctly identified. Informed consent obtained. She from the operating room. She was given general anesthesia. She was given appropriate perioperative antibiotics. She was placed a low lithotomy position. Pressure points were padded. A time-out performed. Of note she has stage IV extremely large uterine prolapse 6-7 cm beyond the introitus. I marked out the skin 3 fingerbreadths cephalad to the umbilicus. I anesthetized the skin. I incised the skin. Of note she had very lax skin and fascia. I dissected down to the fascia. I grasped the fascia with Antonia clamps. I entered the fascia sharply in a Fountain type technique. I placed sutures for later fascial closure. I placed a midline trocar. I examined the abdomen. There is no sign of any injury. Under direct vision I placed 2 additional trocars in the right upper quadrant and 2 additional trocars the left upper quadrant. She was placed in steep Trendelenburg. The robot was docked. Her financial reserve clerk completed their portion of the procedure. Please see that operative report for details. I then sat at the console. She had an extremely large prolapse. The landmarks were somewhat distorted due to the extreme amount of prolapse. She also had significant laxity of the perivaginal tissues, retroperitoneal tissues, and colonic mesentery. I took some additional cervix that was left behind after the hysterectomy. I did not enter the vagina. The Sizer in the vagina created plane on the anterior and posterior vaginal wall. I took great care not to injure the vagina, bladder, or rectum. I introduced the mesh into the abdomen. I sewed the anterior leaflet of mesh on the anterior vaginal wall. I sewed the posterior leaflet of mesh on the posterior vaginal wall. This was done with several sutures of 2 0 Sentinel-Ben. I took great care to go through and through. I reflected the colon laterally. I opened the posterior peritoneum over the sacral promontory. I carried this into the cul-de-sac. I freed up the edges for later retroperitonealization. I visualized the right ureter during the dissection. I kept it lateral. I located the anterior longitudinal ligament the sacrum. I cleaned off all fatty tissues. I then tensioned my mesh appropriately. I did a vaginal exam the bedside. I assured prolapse reduction without undue tension. Cystocele was completely reduced. [place] was completely reduced. She had a small amount of rectocele. There was perineal laxity as well I opted not to repair due to the poor tissue quality. I then sewed the proximal leaflet of mesh onto the anterior longitudinal ligament of the sacrum with four sutures of 2 0 Sentinel-Ben. I then used a 2 0 Monocryl to completely and meticulously retroperitonealized all mesh. I allowed the colon to go back to its normal anatomic location. There is no sign of any impingement. The specimen was then removed. All ports removed. Fascia was tied down. Skin was closed with Monocryl
--- NOTE | 2023-01-24 12:22 | PC.NURSE ---
Patient transferred to post room #289 via ( stretcher ). Support person present. Oriented to unit, room, information board, rooming in, admission packet and security measures. Patient verbalizes understanding.
[2023-01-24] MEDS: KCL 20 MEQ/D5/0.45% SOD CHL 1,000 ML 100 ML IV CONT (13:03)
[2023-01-24] MEDS: levoFLOXacin 500 MG/D5W 100 ML 500 MG/100 ML BAG 100 MG IVPB (13:29)
[2023-01-24] MEDS: metroNIDAZOLE 500 MG/ISO 100ML 500 MG/100 ML BAG 100 MG IVPB ×2 (14:31→23:44)
[2023-01-24] MEDS: MORPHINE SULFATE (*CRX) 2 MG/ML INJ IV PUSH (19:29)
[2023-01-24] MEDS: carvediloL 3.125 MG TABLET PO (21:47)
[2023-01-25 05:32] VITALS: BP 145/77; PULSE 69; RESP 16; TEMP 36.7; O2SAT 96
[2023-01-25] MEDS: HYDROcodone/acetaminophen (*CRX) 5-325 MG TABLET 1 TAB PO ×2 (05:59→12:08)
--- NOTE | 2023-01-25 07:04 | PM.GYNPNOP ---
[facility] - A/P Postoperative Procedures: Procedures Operation Date: 01/24/23 07:30 Actual Procedure Side Surgeon p Robotic Sacrocolpopexy, Urethral Sling Not Applicable Joselo Gautam MD s Robotic Assisted Total Supracervical Hysterectomy Bilateral Salpingectomy Not Applicable Silvio Henderson MD Postoperative day: 1 Postoperative status: doing well Postoperative plan: routine post-op care, ambulate, advance diet and voiding trials Time Spent With Patient Time: Total time spent is greater than 50% in coordination of care (as documented) at patient's floor/unit and/or counseling patient: Time with patient: less than 15 minutes [facility]- PN:Subj Post-Op Subjective Date/time seen: 01/25/23 07:04 Subjective: patient has no complaints, patient desires discharge and pain is well controlled Exam Const: General: cooperative, healthy appearing and comfortable Nutritional Appearance: average body habitus Orientation/consciousness: oriented to person, oriented to place and oriented to time Resp: Effort & Inspection: normal respiratory effort Cardio: Rate: regular rate Rhythm: regular rhythm Heart sounds: S1 normal heart sound present and S2 normal heart sound present GI: Inspection: normal to inspection and incision (Was clean dry and intact) Auscultation: normal bowel sounds [facility] - PN: Obj Data Vital Signs Vital Signs: Vital Signs - 24 hr 01/24/23 10:55 01/24/23 11:10 01/24/23 11:25 Temperature 96.6 F L Pulse Rate 78 61 67 Respiratory Rate 20 10 L 12 Blood Pressure 152/76 H 152/65 H 141/64 H Pulse Oximetry 100 100 94 Oxygen Delivery Simple Face Mask Simple Face Mask Room Air Oxygen Flow Rate 8 8 01/24/23 11:40 01/24/23 11:55 01/24/23 12:10 Temperature 96.9 F L Pulse Rate 63 69 69 Respiratory Rate 10 L 12 12 Blood Pressure 144/62 H 142/64 H 144/64 H Pulse Oximetry 93 92 92 Oxygen Delivery Room Air Room Air Room Air Oxygen Flow Rate 01/24/23 12:30 01/24/23 13:18 01/24/23 17:14 Temperature 97.2 F L 97.5 F L Pulse Rate 65 85 Respiratory Rate 16 16 Blood Pressure 154/81 H 150/80 H Pulse Oximetry 95 98 Oxygen Delivery Room Air Oxygen Flow Rate 01/24/23 17:14 01/24/23 21:47 01/24/23 19:36 Temperature 97.9 F Pulse Rate 71 68 Respiratory Rate 16 Blood Pressure 163/77 H Pulse Oximetry 96 Oxygen Delivery Room Air Oxygen Flow Rate 01/24/23 23:54 01/25/23 05:32 01/25/23 05:32 Temperature 98.2 F 98.1 F Pulse Rate 75 69 69 Respiratory Rate 16 16 16 Blood Pressure 153/68 H 145/77 H Pulse Oximetry 96 96 96 Oxygen Delivery Room Air Oxygen Flow Rate Intake/Output Intake/Output: Intake & Output 01/22/23 01/23/23 01/24/23 01/25/23 23:59 23:59 23:59 23:59 Intake Total 1790 1700 Output Total 820 1075 Balance 970 625 Meds/Results Medications: Active Medications Generic Name Dose Route Start Last Admin Trade Name Freq PRN Reason Stop Dose Admin Acetaminophen 650 mg 01/24/23 12:13 Acetaminophen 325 Mg Tablet PO Q4H PRN Mild Pain (1-3) or Fever Hydrocodone Bitart/Acetaminophen 1 tab 01/24/23 12:13 01/25/23 05:59 Hydrocodone/Acetaminophen (*Crx) 5-325 Mg Tablet PO 1 tab Q4H PRN Administration Pain Rated 4-5 Carvedilol 3.125 mg 01/24/23 21:00 01/24/23 21:47 Carvedilol 3.125 Mg Tablet PO 3.125 mg Q12HR JOSE Administration Diphenhydramine HCl 25 mg 01/24/23 12:13 Diphenhydramine Hcl Inj 50 Mg/Ml Vial IV PUSH Q6H PRN Itching Docusate Sodium 100 mg 01/25/23 09:00 Docusate Sodium 100 Mg Capsule PO DAILY JOSE Enoxaparin Sodium 30 mg 01/25/23 09:00 Enoxaparin 30 Mg/0.3 Ml Syringe SUB-Q DAILY JOSE Levofloxacin/Dextrose 500 mg in 100 mls @ 100 mls/hr 01/24/23 13:00 01/24/23 14:29 Levaquin 500 Mg/D5w 100 Ml IVPB Infused QAM JOSE Infusion Potassium Chloride/Dextrose/Sod Cl 1,000 mls @ 100 mls/hr 01/24/23 12:13 01/24/23 13:03 Kcl 20 Meq/D5/0.45% Sod C
--- NOTE | 2023-01-25 07:06 | PM.DS ---
DS: Admitting Diagnosis Discharge Date 05/07 Admitting Diagnosis uterine prolapse DS: Discharge Diagnosis Discharge Diagnosis (1) BART (stress urinary incontinence, female): Code(s): N39.3 - Stress incontinence (female) (male) Status: Acute (2) Uterine prolapse: Code(s): N81.4 - Uterovaginal prolapse, unspecified Status: Acute DS: Summary Hospital Course Reason for hospitalization: patient was further admitted for supracervical hysterectomy and bilateral salpingo-oophorectomy a bolus sacral colpopexy sling Hospital Course: patient's hospital course was unremarkable. She remained afebrile. She was up, voiding without difficulty, eating regular diet, ambulating, generally without complaints. Time Spent with Patient Time attestation: Total time spent providing and/or coordinating discharge services: Exam Const: General: cooperative, healthy appearing and comfortable Nutritional Appearance: average body habitus Orientation/consciousness: oriented to person, oriented to place and oriented to time Resp: Effort & Inspection: normal respiratory effort Cardio: Rate: regular rate Rhythm: regular rhythm Heart sounds: S1 normal heart sound present and S2 normal heart sound present GI: Inspection: normal to inspection and incision ( clean dry and intact) Auscultation: normal bowel sounds DS: Data Data Completed and Pending Pending studies at discharge: Pending at discharge 01/24/23 08:18 Surgical [PTH] Routine Discharge Plan Discharge Patient Disposition: Home, Self-Care Discharge Instructions: No lifting >20lb, exercise for 6 weeks No tub bath or pool for 4 weeks No intercourse for 6 weeks Stand Alone Forms: General Discharge Instructions Follow-up/Referrals: Joselo Gautam MD [Physician] - (6 weeks) Silvio Gracia MD [Physician] - Discharge Medications: New hydrocodone-acetaminophen 5-325 mg tablet 1 tablet PO Q6H PRN (Reason: pain) Qty: 20 0RF docusate sodium [Colace] 100 mg capsule 100 mg PO BID Qty: 60 0RF Continued carvedilol [Coreg] 3.125 mg Tablet 3.125 mg PO Q12HR Qty: 60 2RF magnesium oxide 400 mg (241.3 mg magnesium) Tablet 400 mg PO DAILY Qty: 30 2RF pantoprazole [Protonix] 40 mg tablet,delayed release (DR/EC) 40 mg PO QAM MDD 40mg losartan [Cozaar] 50 mg tablet 50 mg PO QAM Apricot Seeds 1 cap PO BID Biosalts 1 cap PO BID
[2023-01-25 07:35] VITALS: BP 161/87; PULSE 74; RESP 18; TEMP 37.6; O2SAT 99
--- NOTE | 2023-01-25 07:55 | WPDANESPN ---
Anes - Prog Note Post-Op Date/Time: 01/25/23 07:55 Cardiovascular status: normal Respiratory status: normal Airway patency: baseline Mental status: baseline Post-Op hydration status: normal Vital Signs: Last Vital Signs Temp 36.7 C 01/25/23 05:32 Pulse 69 01/25/23 05:32 Resp 16 01/25/23 05:32 BP 145/77 H 01/25/23 05:32 Pulse Ox 96 01/25/23 05:32 O2 Del Method Room Air 01/25/23 05:32 O2 Flow Rate 8 01/24/23 11:10 Pain Score (VAS): 0 I/O: Intake & Output 01/24/23 01/24/23 01/25/23 15:59 23:59 07:59 Intake Total 1790 1700 Output Total 820 1075 Balance 970 625 Post-procedural complaints: none Patient Feedback: Patient satisfied with anesthetic care.
[2023-01-25] MEDS: metroNIDAZOLE 500 MG/ISO 100ML 500 MG/100 ML BAG 100 MG IVPB (08:16)
[2023-01-25] MEDS: ENOXAPARIN 30 MG/0.3 ML SYRINGE SUB-Q (08:39)
[2023-01-25] MEDS: DOCUSATE SODIUM 100 MG CAPSULE PO (08:40)
[2023-01-25] MEDS: PANTOPRAZOLE 40 MG TABLET PO (08:40)
[2023-01-25] MEDS: levoFLOXacin 500 MG/D5W 100 ML 500 MG/100 ML BAG 100 MG IVPB (09:36)
[2023-01-25] MEDS: LOSARTAN POTASSIUM 50 MG TABLET PO (10:05)
[2023-01-25 10:06] VITALS: PULSE 74
[2023-01-25] MEDS: carvediloL 3.125 MG TABLET PO (10:06)
[2023-01-25] MEDS: levoFLOXacin 500 MG TABLET PO (10:54)
== END 2023-01-25 14:00 | disposition home or self-care (01) ==
LOC: ANHSURGERY 10:50 → ANHOB2 12:35
PROVIDERS: Obstetrics & Gynecology; PCP Family Medicine; Visit Provider Urology
PROC: (CPT 57425; principal; 2023-01-24 07:30)
PROC: (CPT 58542; 2023-01-24 07:30)
DX: N81.4 Uterovaginal prolapse, unspecified (principal); N39.3 Stress incontinence (female) (male); I10 Essential (primary) hypertension; K21.9 Gastro-esophageal reflux disease without esophagitis
CPT/HCPCS: 58542; 57288; 57425; S2900 ×2; 88307; 99199; A9270; C1758; C1769; C1771; C1781; J0690; J1170; J1650; J1836; J1885; J1956; J2270; J3010; J3480; J7030; J7120

== ENCOUNTER 2023-12-03 08:43 | Inpatient (IN) | payer MEDICARE, OTHER, SELFPAY ==
[2023-12-03] VITALS (17 sets, daily range): BP systolic 140–186; BP diastolic 80–96; PULSE 57–89; RESP 16–26; TEMP 36–36.4; O2SAT 94–100; BMI 29.9
--- NOTE | 2023-12-03 | ECHO_ITS ---
Patient Info Name: Davina Trivedi Age: 78 years : 1945 Gender: Female Ht: 60 in Wt: 147 lbs BSA: 1.70 m2 HR: 86 bpm BP: 153 / 96 mmHg Heart Rhythm: Sinus Rhythm Technical Quality: Good Exam Date: 12/03/2023 1:59 PM Exam Location: Echo Lab Patient Status: Outpatient Admit Date: 12/03/2023 Staff Ordering Physician: Juanita Wilson MD Accountant Supervisor: Florian Daniel RDCS Attending Provider: Angelica Portillo MD Referring Physician: Steve HSIEH; Exam Type: CA echo doppler color flow Study Info Indications - acute heart failure Complete two-dimensional, color flow and Doppler transthoracic echocardiogram is performed. Summary 1. Complete two-dimensional, color flow and Doppler transthoracic echocardiogram is performed. 2. Left ventricular hypertrophy with normal systolic function and grade 2 diastolic noncompliance. 3. Severely dilated left atrium. 4. Posterior leaflet mitral valve prolapse with moderate MR, eccentrically directed jet. Left Ventricle Left ventricular chamber dimension is normal. Left ventricular systolic function is normal, estimated at 60-65%. There is mild concentric increased left ventricular wall thickness. The left ventricular diastolic function is grade II diastolic dysfunction. Right Ventricle Right ventricular chamber dimension is normal. Left Atria Left atrial chamber dimension is severely enlarged. Right Atria Right atrial chamber dimension is normal. Aortic Valve The aortic valve is normal. There is trace aortic valve regurgitation. Pulmonic Valve The pulmonic valve is not well visualized. Mitral Valve The mitral valve has posterior prolapse. There is moderate mitral valve regurgitation. Tricuspid Valve The tricuspid valve leaflets are normal. There is mild tricuspid valve regurgitation. Pericardium/Pleural The pericardium appears normal. Aorta The aortic root size at the sinus of Valsalva is normal. Left Ventricular Outflow Tract Name Value Normal LVOT 2D LVOT Diameter 2.0 cm LVOT Doppler LVOT Peak Gradient 6 mmHg LVOT Mean Gradient 3 mmHg LVOT VTI 25 cm LVOT VTI/AV VTI Ratio 0.7 LVOT Stroke Volume 79 ml LVOT CO 4.6 l/min LVOT CI 2.7 l/min/m2 Pulmonic Valve Name Value Normal PV Doppler PV Peak Gradient 3 mmHg Mitral Valve Name Value Normal MV Doppler MV Decel [place] 671 cm/s2 MV PHT 63 ms MV Area (PHT) 3.5 cm2 4
--- NOTE | ~2023-12-03 | US_ITS ---
US venous doppler [facility] DATE: 12/04/2023 10:13 INDICATION: Edema of the lower extremities. Elevated d-dimer. TECHNIQUE: Real-time and color flow imaging and Doppler analysis of the veins of both lower extremiti es. COMPARISON: None FINDINGS: The greater saphenous veins are patent. There is spontaneous and phasic flow and normal aug mentation and color flow signal and normal compression of the deep veins of both lower extremities. IMPRESSION: No evidence of deep venous thrombosis of the lower extremities Reviewed, dictated and finalized at Location [facility]. Reviewed, dictated and finalized at location A.
--- NOTE | ~2023-12-03 | XR_ITS ---
XR chest 1V portable 12/03/2023 09:53 Indication: Shortness of breath. Hypoxia. Procedure: AP portable chest Comparison: 06/29/2021 Findings: Cardiomegaly. Small pleural effusions. There is atherosclerosis of the aorta. There is pulm onary edema. Impression: 1: Cardiomegaly with pulmonary edema. 2: Small pleural effusions. Reviewed, dictated and finalized at location B. Impression: 1: Cardiomegaly with pulmonary edema. 2: Small pleural effusions.
--- NOTE | ~2023-12-03 | CT_ITS ---
EXAMINATION: CTA chest PE protocol DATE: 12/03/2023 10:17 CDT INDICATION: Hypoxia. Elevated d-dimer. TECHNIQUE: Computed tomographic angiography (CTA) of the chest was performed with 100 mL Omnipaque-35 0 intravenous contrast. The dose-length product was 583.11 mGy-cm. Maximum intensity projection 3D-re constructions of the aorta and other arteries were constructed by the technologist on a separate work station. COMPARISON: None. FINDINGS: Study is technically adequate without evidence for pulmonary embolism. Moderate pleural eff usions. Heart size normal. Large hiatal hernia. No thoracic lymphadenopathy. Bilateral groundglass op acities are identified. There is dependent atelectasis. No pneumothorax. No endobronchial lesions. Mo derate thoracic spondylosis with accentuated kyphosis. IMPRESSION: 1. No evidence for pulmonary embolism. 2: Bilateral groundglass opacities with moderate pleural effusions, likely reflecting edema. Pneumoni a less favored. 3: Dependent atelectasis. Reviewed, dictated and finalized at location B. IMPRESSION: 1. No evidence for pulmonary embolism. 2: Bilateral groundglass opacities with moderate pleural effusions, likely refl ecting edema. Pneumonia less favored. 3: Dependent atelectasis.
--- NOTE | 2023-12-03 08:49 | ECG_ITS ---
Test Date: 2023-12-03 08:49:39 Measurements Intervals Pant[place] Rate: 58 P: -10 MN: 220 QRS: -11 QRSD: 158 T: 111 QT: 459 QTc: 455 Interpretive Statements SINUS BRADYCARDIA WITH FIRST DEGREE AV BLOCK LEFT BUNDLE BRANCH BLOCK BASELINE ARTIFACT- I, II, III, AVR, AVL, AVF ABNORMAL ECG No previous ECG available for comparison Electronically Signed On 12-03-2023 08:52:25 CDT by River Sanderson D.O.
--- NOTE | 2023-12-03 08:51 | ED.SOB ---
HPI - SOB/Dyspnea General Chief Complaint: Shortness of Breath/Dyspnea Stated Complaint: SOB Time Seen by Provider: 12/03/23 08:49 Source: patient and EMS Mode of arrival: EMS Limitations: no limitations History of Present Illness HPI Narrative: [age] year female presents acute onset shortness of breath. She was in her baseline state of health with past few days and in fact had recently seen her primary care physician and had an unremarkable exam and workup. She does have a history of hypertension. She is a nonsmoker. No prior history COPD congestive heart failure or any other cardiac her underlying respiratory conditions. EMS noted audible wheezes and rales on exam and she was saturating between 87 and 89% on room air blood pressure of systolic 200 or diastolic 100s on arrival. They placed her on CPAP, gave her 2 sublingual nitroglycerin tablets followed by nitro paste and administered a DuoNeb treatment. Related Data Home Medications Medication Instructions Recorded Confirmed pantoprazole 40 mg tablet,delayed 40 mg PO QAM GERD 03/07/20 12/03/23 release (Protonix) losartan 50 mg tablet (Cozaar) 50 mg PO QAM 01/12/23 12/03/23 carvedilol 3.125 mg tablet (Coreg) 3.125 mg PO BIDWM 12/03/23 12/03/23 Allergies Allergy/AdvReac Type Severity Reaction Status Date / Time latex Allergy Severe Swelling Verified 12/03/23 12:36 Penicillins Allergy Severe Swelling Verified 12/03/23 12:36 cat dander Allergy Mild Swelling Verified 12/03/23 12:36 [facility] Past Medical History Medical History (Updated 12/04/23 @ 08:53 by Griselda Carrasquillo APRN) Anemia mild, resolved Breast cancer s/p right partial mastectomy, radiation 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 GERD (gastroesophageal reflux disease) Hypertension Incomplete uterovaginal prolapse (05/20/16) Left bundle branch block PSVT (paroxysmal supraventricular tachycardia) Rectocele Surgical History Surgical History (Updated 12/03/23 @ 13:00 by Aubrie Gil APRN) History of cardiac catheterization History of lumbar surgery (1999) bone spur/sciatica History of partial hysterectomy History of partial mastectomy right, symmetrizing mammoplasty of left History of right knee surgery meniscus repair Family History Family History Mother Family history of congestive heart failure Cerebrovascular accident Sibling Patient's sister is in good health Social History Social History Smoking status: Never smoker Second hand tobacco smoke exposure: No Alcohol intake: never Substance use: never Substance use type: does not use Do You Feel Safe in your Home?: Yes Lack of Transportation: No Lack of Food: Never True Current Housing: I Have Housing Concerned About Future Housing: No Difficulty Paying Gas/Electric Bills: No Difficulty Paying for Meds: No Currently Unemployed: No Education: High School Diploma/GED Difficulty w/ Childcare or Family Care: No Living arrangements: alone Gender identity (if verbalized by the patient): Female Spiritual care concerns: No Exam Narrative: GENERAL: well-nourished, in mild acute distress. HEAD: Normocephalic, atraumatic. EYES: Non injected, non icteric ENT: Nares clear, no rhinorrhea or epistaxis. NECK: Supple. CHEST: CPAP in place. Coarse breath sounds bilaterally, crackles. HEART: Regular rate and rhythm. ABDOMEN: Soft, nondistended. EXTREMITIES: Normal range of motion. SKIN: Warm, dry, no rash. NEURO: No focal deficits. Alert and oriented x3. PSYCH: Normal mood and affect. Course Vital Signs Vital signs: Vital Signs Temperature 97.6 F 12/03/23 08:47 Pulse Rate 67 12/03/23 08:47 Respiratory Rate 20 12/03/23 08:47 Blood Pressure 170/89 H 12/03/23 08:47 Pulse Oximetry 100 12/03/23 08:47 Oxygen Delivery BiPAP 07
[2023-12-03 09:13] LABS: Basophils Absolute Auto 0.1 K/mm3 (0.0-0.1); Basophils Percent Auto 0.9 % (0.2-1.2); Eosinophils Absolute Auto 0.3 K/mm3 (0-0.3); Eosinophils Percent Auto 3.4 % (0-4.4); Hematocrit 38.3 % (37.0-47.0); Hemoglobin 12.6 g/dL (12.0-15.0); Immature Granulocyte Absolute 0.04 K/mm3 (0.00-0.031); Immature Granulocyte Percent A 0.4 % (0-0.5); Lymphocytes Absolute Auto 1.09 K/mm3 (0.9-3.2); Lymphocytes Percent Auto 10.9 % (18.3-44.2); Mean Corpuscular HGB Conc 32.9 g/dl (32-36); Mean Corpuscular Hemoglobin 31.4 pg (26-34); Mean Corpuscular Volume 95.5 fl (80-100); Mean Platelet Volume 9.8 fl (7.4-10.4); Monocytes Absolute Auto 0.8 K/mm3 (0.1-0.6); Monocytes Percent Auto 7.5 % (2.6-8.5); Neutrophils Absolute Auto 7.7 K/mm3 (1.3-6.7); Neutrophils Percent Auto 76.9 % (45.5-73.1); Platelet Count Result 297 k/mm3 (150-375); Red Blood Count 4.01 M/mm3 (4.2-5.4); Red Cell Distribution Width 13.8 % (11.5-14.5)
[2023-12-03 09:16] LABS: Alveolar/Arterial O2 Gradient 122.2 mmHg; Base Excess ABG -2.8 mEq/l (+/-2.0); Fractional Inspired Oxygen 40 %; HCO3 ABG 20.1 mEq/l (22.0-26.0); Oxygen Saturation ABG 98.7 % (95.0-100.0); Oxyhemoglobin 97.9 % THb (90.0-100.0); PCO2 ABG 29.8 mmHg (35.0-45.0); PO2 ABG 128.7 mmHg (80.0-100.0); PO2 FiO2 Ratio Arterial Blood 3.22 %; Total Hemoglobin 12.9 g/dL (12.0-18.0); pH ABG 7.447 (7.350-7.450)
[2023-12-03] MEDS: FUROSEMIDE INJ 40 MG/4 ML VIAL IV PUSH ×2 (09:17→14:50)
[2023-12-03 09:19] LABS: Device NON-INVASIVE VENT; Modified Allen's Test Pass; Site Drawn LEFT RADIAL
[2023-12-03 09:20] LABS: Non-Invasive Expiratory Pressure 6 CMH2O; Non-Invasive Inspiratory Pressure 14 CMH2O; Non-Invasive Vent Rate 14 /MIN
[2023-12-03 09:25] LABS: INR 1.1; Prothrombin Time 14.9 Seconds (11.1-14.7)
[2023-12-03 09:26] LABS: Lactic Acid Reflex 1.8 mmol/L (0.7-2.0); Partial Thromboplastin Time 28.1 Seconds (22.3-36.8)
[2023-12-03 09:27] LABS: Alanine Aminotransferase 20 U/L (6-35); Albumin Level 3.5 g/dL (3.5-5.1); Alkaline Phosphatase 70 U/L (38-126); Anion Gap 9 mmol/L (4-12); Aspartate Amino Transferase 31 U/L (14-36); Bilirubin,Total 1.2 mg/dL (0.2-1.3); Blood Urea Nitrogen 13 mg/dL (7-17); Calcium 8.4 mg/dL (8.4-10.2); Carbon Dioxide 27 mmol/L (22-30); Chloride 99 mmol/L (98-107); Estimated Glomerular Filt Rate > 60; Glucose 191 mg/dL (65-110); Magnesium 1.8 mg/dL (1.6-2.3); Potassium 3.7 mmol/L (3.4-5.0); Sodium 135 mmol/L (137-145)
[2023-12-03 09:37] LABS: NT Pro B Type Natriuretic Pept 2710 pg/mL (19.9-100); Troponin I < 0.012 ng/mL (0.000-0.034)
[2023-12-03 09:49] LABS: Influenza A QL RT-PCR Negative (Negative); Influenza B QL RT-PCR Negative (Negative); RSV RNA, RT-PCR Negative (Negative); SARS-CoV-2 RNA PCR Negative (Negative)
--- NOTE | 2023-12-03 12:34 | ADMGEN ---
This patient, Davina Trivedi, was admitted to [facility] Surg Room 302-01. Patient/family oriented to hospital policies and general routines including ID bracelet, bed and alarms, visiting hours, pain management, procedures, bathroom and other care routines, personal items, smoking policy, room service/diet, and visiting hours. Information on how to activate the Rapid Response Team has been discussed. Patient/Family are encouraged to report perceived risks to care and to ask questions if they do not understand what they are told or what they should do.
--- NOTE | 2023-12-03 12:48 | PM.IMHP ---
H&P: HPI History of Present Illness Date/Time: 12/03/23 12:48 Chief Complaint: Shortness of Breath Narrative: 78 y/o F presents here with SOB with PMH of HTN, GERD, breast cancer (s/p partial mastectomy and radiation), paroxysmal SVT, and broken heart syndrome. The patient presents here via EMS from home for further evaluation of shortness of breath. Initially began experiencing shortness of breath approximately one week ago. She described it as if the air felt heavy . Then experienced acute worsening of SOB at 07:00 am shortly after making her bed and using the restroom. Patient then called 911, upon EMS arrival patient's O2 sat was 87% on RA. She reports accompanying lightheadedness, rhinorrhea, and shaky. Denies associated chest pain, palpitations, dizziness, lower extremity swelling, abdominal swelling, cough, fever, body aches, or syncope. No history of smoking, asthma, or COPD. Upon arrival to the ED, patient was placed on BiPAP. Now on RA and maintaining sat above 92%. Feels overall improved and shortness of breath has largely resolved. patient does report that she was ill last week and experienced fatigue, general malaise, 1 episode of diarrhea. Took home COVID test which was negative. Initial VS at presentation: 97.6? 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 ED workup showed: Leukocytosis, no anemia, D-dimer elevated, creatinine 0.8 and GFR >60, glucose 191, lactic 1.8, BNP 2710, and initial troponin negative. Viral PCR negative. CXR showed cardiomegaly with pulmonary edema and small pleural effusions. Chest CTA showed no evidence of PE, bilateral ground-glass opacities with moderate pleural effusions likely from electing edema and ammonia less favored, and dependent atelectasis. 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 GERD (gastroesophageal reflux disease) Hypertension Incomplete uterovaginal prolapse (05/20/16) Left bundle branch block PSVT (paroxysmal supraventricular tachycardia) Rectocele Surgical History Surgical History (Updated 12/03/23 @ 13:00 by Aubrie Gil APRN) History of cardiac catheterization History of lumbar surgery (1999) bone spur/sciatica History of partial hysterectomy History of partial mastectomy right, symmetrizing mammoplasty of left History of right knee surgery meniscus repair Family History Family History Mother Family history of congestive heart failure Cerebrovascular accident Sibling Patient's sister is in good health Social History Social History Smoking status: Never smoker Second hand tobacco smoke exposure: No Alcohol intake: never Substance use: never Substance use type: does not use Do You Feel Safe in your Home?: Yes Lack of Transportation: No Lack of Food: Never True Current Housing: I Have Housing Concerned About Future Housing: No Difficulty Paying Gas/Electric Bills: No Difficulty Paying for Meds: No Currently Unemployed: No Education: High School Diploma/GED Difficulty w/ Childcare or Family Care: No Living arrangements: alone Gender identity (if verbalized by the patient): Female Spiritual care concerns: No Meds Home Medications and Allergies Home Medications Medication Instructions Recorded Confirmed Type pantoprazole 40 mg tablet,delayed 40 mg PO QAM GERD 03/07/20 12/03/23 History release (Protonix) magnesium oxide 400 mg (241.3 mg 400 mg PO DAILY #30 tabs 07/02/21 12/03/23 Rx magnesium) tablet losartan 50 mg tablet (Cozaar) 50 mg PO QAM 01/12/23 12/03/23 History
[2023-12-03] MEDS: PANTOPRAZOLE 40 MG TABLET PO (14:50)
[2023-12-03] MEDS: LOSARTAN POTASSIUM 50 MG TABLET PO (14:50)
[2023-12-03] MEDS: MAGNESIUM OXIDE 400 MG TABLET PO (14:50)
[2023-12-03] MEDS: carvediloL 3.125 MG TABLET PO (20:16)
[2023-12-04] VITALS (11 sets, daily range): BP systolic 136–148; BP diastolic 59–94; PULSE 45–74; RESP 16–20; TEMP 36.3–36.4; O2SAT 93–99
[2023-12-04 07:31] LABS: Basophils Absolute Auto 0.1 K/mm3 (0.0-0.1); Eosinophils Absolute Auto 0.3 K/mm3 (0-0.3); Eosinophils Percent Auto 3.5 % (0-4.4); Hematocrit 36.4 % (37.0-47.0); Hemoglobin 12.4 g/dL (12.0-15.0); Immature Granulocyte Absolute 0.03 K/mm3 (0.00-0.031); Immature Granulocyte Percent A 0.4 % (0-0.5); Lymphocytes Absolute Auto 1.76 K/mm3 (0.9-3.2); Mean Corpuscular HGB Conc 34.1 g/dl (32-36); Mean Corpuscular Hemoglobin 31.5 pg (26-34); Mean Corpuscular Volume 92.4 fl (80-100); Monocytes Absolute Auto 1.1 K/mm3 (0.1-0.6); Monocytes Percent Auto 13.3 % (2.6-8.5); Neutrophils Absolute Auto 5.1 K/mm3 (1.3-6.7); Neutrophils Percent Auto 60.8 % (45.5-73.1); Platelet Count Result 306 k/mm3 (150-375); Red Blood Count 3.94 M/mm3 (4.2-5.4); Red Cell Distribution Width 13.5 % (11.5-14.5); White Blood Count 8.4 K/mm3 (4.5-10.0)
[2023-12-04 07:53] LABS: Albumin Level 3.5 g/dL (3.5-5.1); Alkaline Phosphatase 66 U/L (38-126); Anion Gap 6 mmol/L (4-12); Bilirubin,Total 1.3 mg/dL (0.2-1.3); Blood Urea Nitrogen 13 mg/dL (7-17); Calcium 8.3 mg/dL (8.4-10.2); Carbon Dioxide 32 mmol/L (22-30); Chloride 95 mmol/L (98-107); Estimated Glomerular Filt Rate > 60; Glucose 91 mg/dL (65-110); Sodium 133 mmol/L (137-145)
[2023-12-04 07:58] LABS: Alanine Aminotransferase 18 U/L (6-35); Aspartate Amino Transferase 28 U/L (14-36)
--- NOTE | 2023-12-04 08:33 | P.PNIM_ITS ---
Progress Note: A&P Assessment and Plan (1) Hyperglycemia: Code(s): R73.9 - Hyperglycemia, unspecified Status: Acute (2) Acute congestive heart failure: Qualifiers: Heart failure type: unspecified Qualified Code(s): I50.9 - Heart failure, unspecified Code(s): I50.9 - Heart failure, unspecified Status: Acute (3) LBBB (left bundle branch block): Code(s): I44.7 - Left bundle-branch block, unspecified Status: Acute (4) Bradycardia, sinus: Code(s): R00.1 - Bradycardia, unspecified Status: Acute (5) First degree AV block: Code(s): I44.0 - Atrioventricular block, first degree Status: Acute (6) Cardiomegaly: Code(s): I51.7 - Cardiomegaly Status: Acute (7) Hypertension: Qualifiers: Hypertension type: primary hypertension Qualified Code(s): I10 - Essential (primary) hypertension Code(s): I10 - Essential (primary) hypertension Status: Chronic (8) Hypokalemia: Code(s): E87.6 - Hypokalemia Status: Acute (9) Acute respiratory failure with hypoxia: Code(s): J96.01 - Acute respiratory failure with hypoxia Status: Acute Plan Acute respiratory failure with hypoxia * Secondary to new onset CHF/pulmonary edema * 87% per JAILKEEPER * placed on BiPap initially * IV lasix with improvement in the ED * on RA now Acute on chronic heart failure * New onset waiting on echo for type * Previous history takotsubo cardiomyopathy 2021 * BNP 2710 * cardiology consulted * IV Lasix daily * monitor renal function during diuresis * previous echocardiogram results 2021 LVEF 65-70% * Murmur noted * echocardiogram pending * EKG SB first degree block * chest x-ray Pulmonary edema * CTA negative for PE * Lipid panel, TSH, liver function test. * Optimize Jonathan inhibitors, beta-blockers, ARNI * Daily weight. Hypokalemia * 3.0 * 40meq * Monitor and replenish to keep >4.0 HTN: * Resume carvedilol and losartan * BP per unit protocol Hyperglycemia * No previous history of diabetes * 191 POA * A1c pending Code status: Full code per patient DVT prophylaxis: Lovenox Stress ulcer prophylaxis: Protonix 40 daily PT/OT notes: PT/OT pending Disposition: Patient was admitted with new onset congestive heart failure will continue with IV diuretics an echocardiogram may need consult to Cardiology pending response to treatment. PT OT for recommendations however patient will likely discharge back to home when medically stable. Time Spent With Patient Time with patient: 15 - 25 minutes Subjective Date/time seen: 12/04/23 08:33 Interval history: Admission: 78 y/o F presents here with SOB with PMH of HTN, GERD, breast cancer (s/p partial mastectomy and radiation), paroxysmal SVT, and broken heart syndrome. The patient presents here via EMS from home for further evaluation of shortness of breath. Initially began experiencing shortness of breath approximately one week ago. She described it as if the air felt heavy . Then experienced acute worsening of SOB at 07:00 am shortly after making her bed and using the restroom . Patient then called 911, upon EMS arrival patient's O2 sat was 87% on RA. She reports accompanying lightheadedness, rhinorrhea, and shaky. Denies associated chest pain, palpitations, dizziness, lower extremity swelling, abdominal swelling, cough, fever, body aches, or syncope. No history of smoking, asthma,
--- NOTE | 2023-12-04 08:33 | PM.IMPN ---
Progress Note: A&P Assessment and Plan (1) Hyperglycemia: Code(s): R73.9 - Hyperglycemia, unspecified Status: Acute (2) Acute congestive heart failure: Qualifiers: Heart failure type: unspecified Qualified Code(s): I50.9 - Heart failure, unspecified Code(s): I50.9 - Heart failure, unspecified Status: Acute (3) LBBB (left bundle branch block): Code(s): I44.7 - Left bundle-branch block, unspecified Status: Acute (4) Bradycardia, sinus: Code(s): R00.1 - Bradycardia, unspecified Status: Acute (5) First degree AV block: Code(s): I44.0 - Atrioventricular block, first degree Status: Acute (6) Cardiomegaly: Code(s): I51.7 - Cardiomegaly Status: Acute (7) Hypertension: Qualifiers: Hypertension type: primary hypertension Qualified Code(s): I10 - Essential (primary) hypertension Code(s): I10 - Essential (primary) hypertension Status: Chronic (8) Hypokalemia: Code(s): E87.6 - Hypokalemia Status: Acute (9) Acute respiratory failure with hypoxia: Code(s): J96.01 - Acute respiratory failure with hypoxia Status: Acute Plan Acute respiratory failure with hypoxia Secondary to new onset CHF/pulmonary edema 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 Optimize Jonathan inhibitors, beta-blockers, ARNI Daily weight. Hypokalemia 3.0 40meq Monitor and replenish to keep >4.0 HTN: Resume carvedilol and losartan BP per unit protocol Hyperglycemia No previous history of diabetes 191 POA A1c pending Code status: Full code per patient DVT prophylaxis: Lovenox Stress ulcer prophylaxis: Protonix 40 daily PT/OT notes: PT/OT pending Disposition: Patient was admitted with new onset congestive heart failure will continue with IV diuretics an echocardiogram may need consult to Cardiology pending response to treatment. PT OT for recommendations however patient will likely discharge back to home when medically stable. Time Spent With Patient Time with patient: 15 - 25 minutes Subjective Date/time seen: 12/04/23 08:33 Interval history: Admission: 78 y/o F presents here with SOB with PMH of HTN, GERD, breast cancer (s/p partial mastectomy and radiation), paroxysmal SVT, and broken heart syndrome. The patient presents here via EMS from home for further evaluation of shortness of breath. Initially began experiencing shortness of breath approximately one week ago. She described it as if the air felt heavy . Then experienced acute worsening of SOB at 07:00 am shortly after making her bed and using the restroom. Patient then called 911, upon EMS arrival patient's O2 sat was 87% on RA. She reports accompanying lightheadedness, rhinorrhea, and shaky. Denies associated chest pain, palpitations, dizziness, lower extremity swelling, abdominal swelling, cough, fever, body aches, or syncope. No history of smoking, asthma, or COPD. Upon arrival to the ED, patient was placed on BiPAP. Now on RA and maintaining sat above 92%. Feels overall improved and shortness of breath has largely resolved. patient does report that she was ill last week and experienced fatigue, general malaise, 1 episode of diarrhea. Took home COVID test which was negative. Initial VS at presentation: 97.6? 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 ED workup showed: Leukocytosis, no anemia, D-dimer elevated, creatinine 0.8 and GFR >60, glucose 19
[2023-12-04] MEDS: MAGNESIUM OXIDE 400 MG TABLET PO (08:46)
[2023-12-04] MEDS: PANTOPRAZOLE 40 MG TABLET PO (08:46)
[2023-12-04] MEDS: FUROSEMIDE INJ 40 MG/4 ML VIAL IV PUSH (08:46)
[2023-12-04] MEDS: POTASSIUM CHLORIDE 20 MEQ ER TABLET 40 MEQ PO (08:46)
[2023-12-04 10:16] LABS: Cholesterol 143 mg/dL (0-200); HDL Direct 29 mg/dL; Magnesium 1.8 mg/dL (1.6-2.3); Triglycerides 84 mg/dL (<150)
[2023-12-04 10:18] LABS: Hemoglobin A1C 5.3 % (<5.7)
[2023-12-04 10:28] LABS: LDL Cholesterol Direct 99 mg/dL
[2023-12-04] MEDS: carvediloL 3.125 MG TABLET PO (20:21)
[2023-12-05] VITALS (13 sets, daily range): BP systolic 136–152; BP diastolic 66–89; PULSE 47–71; RESP 18–20; TEMP 36–36.2; O2SAT 93–96
[2023-12-05 06:38] LABS: Hematocrit 38.9 % (37.0-47.0); Hemoglobin 12.7 g/dL (12.0-15.0); Mean Corpuscular HGB Conc 32.6 g/dl (32-36); Mean Corpuscular Hemoglobin 31.1 pg (26-34); Mean Corpuscular Volume 95.1 fl (80-100); Mean Platelet Volume 9.9 fl (7.4-10.4); Platelet Count Result 301 k/mm3 (150-375); Red Blood Count 4.09 M/mm3 (4.2-5.4); Red Cell Distribution Width 13.7 % (11.5-14.5); White Blood Count 7.9 K/mm3 (4.5-10.0)
[2023-12-05 07:03] LABS: Alanine Aminotransferase 17 U/L (6-35); Albumin Level 3.3 g/dL (3.5-5.1); Alkaline Phosphatase 63 U/L (38-126); Anion Gap 7 mmol/L (4-12); Aspartate Amino Transferase 28 U/L (14-36); Bilirubin,Total 0.9 mg/dL (0.2-1.3); Blood Urea Nitrogen 12 mg/dL (7-17); Calcium 8.3 mg/dL (8.4-10.2); Carbon Dioxide 29 mmol/L (22-30); Chloride 98 mmol/L (98-107); Estimated Glomerular Filt Rate > 60; Glucose 91 mg/dL (65-110); Potassium 3.4 mmol/L (3.4-5.0); Sodium 134 mmol/L (137-145)
[2023-12-05] MEDS: PANTOPRAZOLE 40 MG TABLET PO (09:06)
[2023-12-05] MEDS: carvediloL 3.125 MG TABLET PO ×2 (09:06→20:45)
[2023-12-05] MEDS: FUROSEMIDE INJ 40 MG/4 ML VIAL IV PUSH (09:06)
[2023-12-05] MEDS: MAGNESIUM OXIDE 400 MG TABLET PO (09:06)
[2023-12-05] MEDS: LOSARTAN POTASSIUM 50 MG TABLET PO (09:08)
[2023-12-05] MEDS: ENOXAPARIN 40 MG/0.4 ML SYRINGE SUB-Q (09:08)
--- NOTE | 2023-12-05 11:47 | PM.CNCAR ---
Assessment and Plan Assessment and plan (1) (HFpEF) heart failure with preserved ejection fraction: Code(s): I50.30 - Unspecified diastolic (congestive) heart failure Status: Acute Assessment and Plan: She has grade 2 diastolic dysfunction as well as valvular heart disease presenting with dyspnea. She has improved with IV furosemide. Discontinue losartan and shift to Entresto 24-26 b.i.d. for HFpEF and HTN Will add spironolactone Blood pressure control Shift to p.o. furosemide tomorrow Anticipate discharge tomorrow (2) Mitral regurgitation: Code(s): I34.0 - Nonrheumatic mitral (valve) insufficiency Status: Acute Assessment and Plan: She has mitral prolapse and moderate MR. Outpatient surveillance with periodic echocardiogram (3) Hypertension: Qualifiers: Hypertension type: primary hypertension Qualified Code(s): I10 - Essential (primary) hypertension Code(s): I10 - Essential (primary) hypertension Status: Chronic Assessment and Plan: Closely monitor blood pressure with above changes as detailed in #1. History of Present Illness History of Present Illness Consult date/time: 12/05/23 11:47 Requesting physician: Griselda Carrasquillo APRN Consult reason: congestive heart failure Reason For Visit: Acute Heart Failure/Flash Pulmonary Edema/SCAPE Narrative: Davina Trivedi is a 78-year-old female with hypertension but no other significant cardiac history. This is a patient who presents to the hospital with a chief complaint of shortness of breath. Patient began experiencing a feeling of feeling that the air was heavy and some postnasal drip about a week ago. She contributed her symptoms to the weather initially. However, on Tuesday she developed significant dyspnea with mild exertion and found it difficult to catch her breath after she was resting. Therefore, she presented to the hospital. Cardiology has been consulted for congestive heart failure. She was received IV furosemide and is feeling significantly better today. She denies any chest pain, shortness of breath, edema, orthopnea, paroxysmal nocturnal dyspnea. 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 GERD (gastroesophageal reflux disease) Hypertension Incomplete uterovaginal prolapse (05/20/16) Left bundle branch block PSVT (paroxysmal supraventricular tachycardia) Rectocele Surgical History Surgical History History of cardiac catheterization History of lumbar surgery (1999) bone spur/sciatica History of partial hysterectomy History of partial mastectomy right, symmetrizing mammoplasty of left History of right knee surgery meniscus repair Family History Family History Mother Family history of congestive heart failure Cerebrovascular accident Sibling Patient's sister is in good health Social History Social History Smoking status: Never smoker Second hand tobacco smoke exposure: No Alcohol intake: never Substance use: never Substance use type: does not use Do You Feel Safe in your Home?: Yes Lack of Transportation: No Lack of Food: Never True Current Housing: I Have Housing Concerned About Future Housing: No Difficulty Paying Gas/Electric Bills: No Difficulty Paying for Meds: No Currently Unemployed: No Education: High School Diploma/GED Difficulty w/ Childcare or Family Care: No Living arrangements: alone Gender identity (if verbalized by the patient): Female Spiritual care
--- NOTE | 2023-12-05 12:55 | PCPTNOTE ---
On 12/05/23, the student, [Katie Strickland], provided care and completed [facility] documentation on this patient. I have reviewed the student's documentation and agree with the findings.
--- NOTE | 2023-12-05 14:56 | P.PNIM_ITS ---
Progress Note: A&P Assessment and Plan (1) Hyperglycemia: Code(s): R73.9 - Hyperglycemia, unspecified Status: Acute (2) Acute congestive heart failure: Qualifiers: Heart failure type: unspecified Qualified Code(s): I50.9 - Heart failure, unspecified Code(s): I50.9 - Heart failure, unspecified Status: Acute (3) LBBB (left bundle branch block): Code(s): I44.7 - Left bundle-branch block, unspecified Status: Acute (4) Bradycardia, sinus: Code(s): R00.1 - Bradycardia, unspecified Status: Acute (5) First degree AV block: Code(s): I44.0 - Atrioventricular block, first degree Status: Acute (6) Cardiomegaly: Code(s): I51.7 - Cardiomegaly Status: Acute (7) Hypertension: Qualifiers: Hypertension type: primary hypertension Qualified Code(s): I10 - Essential (primary) hypertension Code(s): I10 - Essential (primary) hypertension Status: Chronic (8) Hypokalemia: Code(s): E87.6 - Hypokalemia Status: Acute (9) Acute respiratory failure with hypoxia: Code(s): J96.01 - Acute respiratory failure with hypoxia Status: Acute (10) Mitral regurgitation: Code(s): I34.0 - Nonrheumatic mitral (valve) insufficiency Status: Acute (11) (HFpEF) heart failure with preserved ejection fraction: Code(s): I50.30 - Unspecified diastolic (congestive) heart failure Status: Acute Plan Acute respiratory failure with hypoxia * Secondary to new onset CHF/pulmonary edema * 87% per HEALTH INFORMATION MANAGER * placed on BiPap initially * IV lasix with improvement in the ED * on RA now Acute on chronic heart failure * New onset waiting on echo for type * Previous history takotsubo cardiomyopathy 2021 * BNP 2710 * cardiology consulted * IV Lasix daily * monitor renal function during diuresis * previous echocardiogram results 2021 LVEF 65-70% * Murmur noted * echocardiogram pending * EKG SB first degree block * chest x-ray Pulmonary edema * CTA negative for PE * Lipid panel, TSH, liver function test. * Optimize Jonathan inhibitors, beta-blockers, ARNI * Daily weight. 12/05/2023: Per cardiology * Discontinue losartan and shift to Entresto 24-26 b.i.d. for HFpEF and HTN * added spironolactone * Blood pressure control * Shift to p.o. furosemide tomorrow * Anticipate discharge tomorrow Mitral Valve Regurg: * Mitral prolapse with MR will need frequent Echo O/P and follow-ups with cardiology Hypokalemia * 3.0 * 40meq * Monitor and replenish to keep >4.0 HTN: * Resume carvedilol and losartan * BP per unit protocol Hyperglycemia * No previous history of diabetes * 191 POA * A1c pending Code status: Full code per patient DVT prophylaxis: Lovenox Stress ulcer prophylaxis: Protonix 40 daily PT/OT notes: ambulatory Disposition: Patient was admitted with new onset congestive heart failure will continue with IV diuretics an echocardiogram may need consult to Cardiology pending response to treatment. Plan for transition to PO Lasix tomorrow and discharge to home. Time Spent With Patient Time with patient: 15 - 25 minutes Subjective Date/time seen: 12/05/23 14:56 Interval history: Admission: 78 y/o F presents here with SOB with PMH of HTN, GERD, breast cancer (s/p partial mastectomy and radiation), paroxysmal SVT, and broken heart syndrome. The
--- NOTE | 2023-12-05 14:56 | PM.IMPN ---
Progress Note: A&P Assessment and Plan (1) Hyperglycemia: Code(s): R73.9 - Hyperglycemia, unspecified Status: Acute (2) Acute congestive heart failure: Qualifiers: Heart failure type: unspecified Qualified Code(s): I50.9 - Heart failure, unspecified Code(s): I50.9 - Heart failure, unspecified Status: Acute (3) LBBB (left bundle branch block): Code(s): I44.7 - Left bundle-branch block, unspecified Status: Acute (4) Bradycardia, sinus: Code(s): R00.1 - Bradycardia, unspecified Status: Acute (5) First degree AV block: Code(s): I44.0 - Atrioventricular block, first degree Status: Acute (6) Cardiomegaly: Code(s): I51.7 - Cardiomegaly Status: Acute (7) Hypertension: Qualifiers: Hypertension type: primary hypertension Qualified Code(s): I10 - Essential (primary) hypertension Code(s): I10 - Essential (primary) hypertension Status: Chronic (8) Hypokalemia: Code(s): E87.6 - Hypokalemia Status: Acute (9) Acute respiratory failure with hypoxia: Code(s): J96.01 - Acute respiratory failure with hypoxia Status: Acute (10) Mitral regurgitation: Code(s): I34.0 - Nonrheumatic mitral (valve) insufficiency Status: Acute (11) (HFpEF) heart failure with preserved ejection fraction: Code(s): I50.30 - Unspecified diastolic (congestive) heart failure Status: Acute Plan Acute respiratory failure with hypoxia Secondary to new onset CHF/pulmonary edema 87% per 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 Optimize Jonathan inhibitors, beta-blockers, ARNI Daily weight. 12/05/2023: Per cardiology Discontinue losartan and shift to Entresto 24-26 b.i.d. for HFpEF and HTN added spironolactone Blood pressure control Shift to p.o. furosemide tomorrow Anticipate discharge tomorrow Mitral Valve Regurg: Mitral prolapse with MR will need frequent Echo O/P and follow-ups with cardiology Hypokalemia 3.0 40meq Monitor and replenish to keep >4.0 HTN: Resume carvedilol and losartan BP per unit protocol Hyperglycemia No previous history of diabetes 191 POA A1c pending Code status: Full code per patient DVT prophylaxis: Lovenox Stress ulcer prophylaxis: Protonix 40 daily PT/OT notes: ambulatory Disposition: Patient was admitted with new onset congestive heart failure will continue with IV diuretics an echocardiogram may need consult to Cardiology pending response to treatment. Plan for transition to PO Lasix tomorrow and discharge to home. Time Spent With Patient Time with patient: 15 - 25 minutes Subjective Date/time seen: 12/05/23 14:56 Interval history: Admission: 78 y/o F presents here with SOB with PMH of HTN, GERD, breast cancer (s/p partial mastectomy and radiation), paroxysmal SVT, and broken heart syndrome. The patient presents here via EMS from home for further evaluation of shortness of breath. Initially began experiencing shortness of breath approximately one week ago. She described it as if the air felt heavy . Then experienced acute worsening of SOB at 07:00 am shortly after making her bed and using the restroom. Patient then called 911, upon EMS arrival patient's O2 sat was 87% on RA. She reports accompanying lightheadedness, rhinorrhea, and shaky. Denies associated chest pain, palpitations, dizziness, lower extremity swelling, abdominal swelling, cough, fever, body ac
[2023-12-05] MEDS: SACUBITRIL/VALSARTAN 24-26 MG TABLET 1 TAB PO (20:46)
[2023-12-06] VITALS: PULSE 49
[2023-12-06 04:00] VITALS: PULSE 50
[2023-12-06 05:34] VITALS: BP 142/72; PULSE 65; RESP 16; TEMP 36.4; O2SAT 97
[2023-12-06 06:20] LABS: Hemoglobin 12.9 g/dL (12.0-15.0); Mean Corpuscular HGB Conc 33.1 g/dl (32-36); Mean Corpuscular Hemoglobin 31.2 pg (26-34); Mean Corpuscular Volume 94.4 fl (80-100); Mean Platelet Volume 9.7 fl (7.4-10.4); Platelet Count Result 317 k/mm3 (150-375); Red Blood Count 4.13 M/mm3 (4.2-5.4); Red Cell Distribution Width 13.8 % (11.5-14.5)
[2023-12-06 06:44] LABS: Alanine Aminotransferase 16 U/L (6-35); Albumin Level 3.3 g/dL (3.5-5.1); Alkaline Phosphatase 60 U/L (38-126); Anion Gap 7 mmol/L (4-12); Aspartate Amino Transferase 25 U/L (14-36); Bilirubin,Total 0.9 mg/dL (0.2-1.3); Blood Urea Nitrogen 14 mg/dL (7-17); Calcium 8.5 mg/dL (8.4-10.2); Carbon Dioxide 30 mmol/L (22-30); Chloride 98 mmol/L (98-107); Estimated Glomerular Filt Rate > 60; Glucose 95 mg/dL (65-110); Potassium 3.9 mmol/L (3.4-5.0); Sodium 135 mmol/L (137-145)
[2023-12-06 08:34] VITALS: O2SAT 91
[2023-12-06 08:41] VITALS: PULSE 63
[2023-12-06] MEDS: carvediloL 3.125 MG TABLET PO (08:41)
[2023-12-06] MEDS: MAGNESIUM OXIDE 400 MG TABLET PO (08:41)
[2023-12-06] MEDS: FUROSEMIDE 40 MG TABLET PO (08:42)
[2023-12-06] MEDS: SACUBITRIL/VALSARTAN 24-26 MG TABLET 1 TAB PO (08:42)
[2023-12-06] MEDS: PANTOPRAZOLE 40 MG TABLET PO (08:42)
[2023-12-06] MEDS: SPIRONOLACTONE 25 MG TABLET PO (08:42)
[2023-12-06] MEDS: ENOXAPARIN 40 MG/0.4 ML SYRINGE SUB-Q (08:43)
--- NOTE | 2023-12-06 10:56 | PM.DS ---
DS: Admitting Diagnosis Discharge Date 12/06/2023 Admitting Diagnosis New onset diastolic congestive heart failure/mitral valve prolapse with moderate MR/flash pulmonary edema DS: Discharge Diagnosis Discharge Diagnosis (1) Hyperglycemia: Code(s): R73.9 - Hyperglycemia, unspecified Status: Acute (2) Acute congestive heart failure: Qualifiers: Heart failure type: unspecified Qualified Code(s): I50.9 - Heart failure, unspecified Code(s): I50.9 - Heart failure, unspecified Status: Acute (3) LBBB (left bundle branch block): Code(s): I44.7 - Left bundle-branch block, unspecified Status: Acute (4) Bradycardia, sinus: Code(s): R00.1 - Bradycardia, unspecified Status: Acute (5) First degree AV block: Code(s): I44.0 - Atrioventricular block, first degree Status: Acute (6) Cardiomegaly: Code(s): I51.7 - Cardiomegaly Status: Acute (7) Hypertension: Qualifiers: Hypertension type: primary hypertension Qualified Code(s): I10 - Essential (primary) hypertension Code(s): I10 - Essential (primary) hypertension Status: Chronic (8) Hypokalemia: Code(s): E87.6 - Hypokalemia Status: Acute (9) Acute respiratory failure with hypoxia: Code(s): J96.01 - Acute respiratory failure with hypoxia Status: Acute (10) Mitral regurgitation: Code(s): I34.0 - Nonrheumatic mitral (valve) insufficiency Status: Acute (11) (HFpEF) heart failure with preserved ejection fraction: Code(s): I50.30 - Unspecified diastolic (congestive) heart failure Status: Acute Plan Acute respiratory failure with hypoxia Secondary to new onset CHF/pulmonary edema 87% per 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 Optimize Jonathan inhibitors, beta-blockers, ARNI Daily weight. 12/05/2023: Per cardiology Discontinue losartan and shift to Entresto 24-26 b.i.d. for HFpEF and HTN added spironolactone Blood pressure control Shift to p.o. furosemide tomorrow Anticipate discharge tomorrow Mitral Valve Regurg: Mitral prolapse with MR will need frequent Echo O/P and follow-ups with cardiology Hypokalemia 3.0 40meq Monitor and replenish to keep >4.0 HTN: Resume carvedilol and losartan BP per unit protocol Hyperglycemia No previous history of diabetes 191 POA A1c pending Disposition: Discharge to home DS: Summary Hospital Course Reason for hospitalization: New onset diastolic congestive heart failure/mitral valve prolapse with moderate MR/flash pulmonary edema Hospital Course: Admission: 78 y/o F presents here with SOB with PMH of HTN, GERD, breast cancer (s/p partial mastectomy and radiation), paroxysmal SVT, and broken heart syndrome. The patient presents here via EMS from home for further evaluation of shortness of breath. Initially began experiencing shortness of breath approximately one week ago. She described it as if the air felt heavy . Then experienced acute worsening of SOB at 07:00 am shortly after making her bed and using the restroom. Patient then called 911, upon EMS arrival patient's O2 sat was 87% on RA. She reports accompanying lightheadedness, rhinorrhea, and shaky. Denies associated chest pain, palpitations, dizziness, lower extremity swelling, abdominal swelling, cough, fever, body aches, or syncope. No history of smoking, asthma, or COPD. Upon arrival to the ED, patient was placed
--- NOTE | 2023-12-06 10:56 | P.DS_ITS ---
DS: Admitting Diagnosis Discharge Date 12/06/2023 Admitting Diagnosis New onset diastolic congestive heart failure/mitral valve prolapse with moderate MR/flash pulmonary edema DS: Discharge Diagnosis Discharge Diagnosis (1) Hyperglycemia: Code(s): R73.9 - Hyperglycemia, unspecified Status: Acute (2) Acute congestive heart failure: Qualifiers: Heart failure type: unspecified Qualified Code(s): I50.9 - Heart failure, unspecified Code(s): I50.9 - Heart failure, unspecified Status: Acute (3) LBBB (left bundle branch block): Code(s): I44.7 - Left bundle-branch block, unspecified Status: Acute (4) Bradycardia, sinus: Code(s): R00.1 - Bradycardia, unspecified Status: Acute (5) First degree AV block: Code(s): I44.0 - Atrioventricular block, first degree Status: Acute (6) Cardiomegaly: Code(s): I51.7 - Cardiomegaly Status: Acute (7) Hypertension: Qualifiers: Hypertension type: primary hypertension Qualified Code(s): I10 - Essential (primary) hypertension Code(s): I10 - Essential (primary) hypertension Status: Chronic (8) Hypokalemia: Code(s): E87.6 - Hypokalemia Status: Acute (9) Acute respiratory failure with hypoxia: Code(s): J96.01 - Acute respiratory failure with hypoxia Status: Acute (10) Mitral regurgitation: Code(s): I34.0 - Nonrheumatic mitral (valve) insufficiency Status: Acute (11) (HFpEF) heart failure with preserved ejection fraction: Code(s): I50.30 - Unspecified diastolic (congestive) heart failure Status: Acute Plan Acute respiratory failure with hypoxia * Secondary to new onset CHF/pulmonary edema * 87% per MINK SLICER * placed on BiPap initially * IV lasix with improvement in the ED * on RA now Acute on chronic heart failure * New onset waiting on echo for type * Previous history takotsubo cardiomyopathy 2021 * BNP 0 * cardiology consulted * IV Lasix daily * monitor renal function during diuresis * previous echocardiogram results 2021 LVEF 65-70% * Murmur noted * echocardiogram pending * EKG SB first degree block * chest x-ray Pulmonary edema * CTA negative for PE * Lipid panel, TSH, liver function test. * Optimize Jonathan inhibitors, beta-blockers, ARNI * Daily weight. 12/05/2023: Per cardiology * Discontinue losartan and shift to Entresto 24-26 b.i.d. for HFpEF and HTN * added spironolactone * Blood pressure control * Shift to p.o. furosemide tomorrow * Anticipate discharge tomorrow Mitral Valve Regurg: * Mitral prolapse with MR will need frequent Echo O/P and follow-ups with cardiology Hypokalemia * 3.0 * 40meq * Monitor and replenish to keep >4.0 HTN: * Resume carvedilol and losartan * BP per unit protocol Hyperglycemia * No previous history of diabetes * 191 POA * A1c pending Disposition: Discharge to home DS: Summary Hospital Course Reason for hospitalization: New onset diastolic congestive heart failure/mitral valve prolapse with moderate MR/flash pulmonary edema Hospital Course: Admission: 78 y/o F presents here with SOB with PMH of HTN, GERD, breast cancer (s/p partial mastectomy and radiation), paroxysmal SVT, and broken heart syndrome. The patient presents here via EMS from home for further evaluation of max
== END 2023-12-06 11:30 | disposition home or self-care (01) | DRG 291 ==
LOC: ANHED 10:33 → ANH3MEDSUR 11:30
PROVIDERS: Student in an Organized Health Care Education/Training Program; Admitting Provider General Practice; Emergency Provider Student in an Organized Health Care Education/Training Program; PCP Family Medicine; Visit Provider Nurse Practitioner Family
DX: I13.0 Hypertensive heart and chronic kidney disease with heart failure and stage 1 through stage 4 chronic kidney disease, or unspecified chronic kidney disease (principal); I50.31 Acute diastolic (congestive) heart failure; J96.01 Acute respiratory failure with hypoxia; I34.1 Nonrheumatic mitral (valve) prolapse; R73.9 Hyperglycemia, unspecified; I44.7 Left bundle-branch block, unspecified; I44.0 Atrioventricular block, first degree; D64.9 Anemia, unspecified; E87.6 Hypokalemia; I34.0 Nonrheumatic mitral (valve) insufficiency; Z20.822 Contact with and (suspected) exposure to COVID-19; Z85.3 Personal history of malignant neoplasm of breast; Z90.711 Acquired absence of uterus with remaining cervical stump; Z86.79 Personal history of other diseases of the circulatory system
CPT/HCPCS: 36415; 36600; 71045; 71275; 80053; 80061; 82805; 83036; 83605; 83735; 83880; 84443; 84484; 85025; 85027; 85380; 85610; 85730; 87637; 93005; 93306; 93970; 94002; 94762; 96372; 96374; 96376; 97161; 97165; 99285; A9270; G0378; J1650; J1940; Q9967